=== PATIENT | female | born 1930 | race Caucasian/White ===

== ENCOUNTER 2017-01-18 18:09 | Inpatient (IN) | payer MEDICARE, MEDICAID ==
[2017-01-18] MEDS ORDERED: Sodium Chloride 0.9% 1,000 ML IV ONE ×2 (19:10→21:02)
--- NOTE | 2017-01-18 19:10 | C.PDOC ---
History Of Present Illness Patient is an 86 y/o female with dementia, BIB her family, who presents to the ED with complaints of abdominal pain, constipation, and intermittent bloating for the past week. Family denies fever or chills and describes patient's discomfort as 5/10. The family denies any other complaints at this time. Time Seen by Provider: 01/18/17 19:10 Chief Complaint (Nursing): Altered Mental Status History Per: Family History/Exam Limitations: Other (Patient has dementia. ) Onset/Duration Of Symptoms: Days (symptoms began 1 week ago. ), Worse Since Current Symptoms Are (Timing): Still Present Usual Baseline: Non-verbal, Other (confused) Exacerbating Factor(s): denies: Fever Use Of Anticoag/Antiplatelets: No Severity: Moderate Pain Scale Rating Of: 5 Recent travel outside of the [place]: No Additional History Per: Family Associated Symptoms: Fever, Other (constipation). denies: Chills Past Medical History Reviewed: Historical Data, Nursing Documentation, Vital Signs Vital Signs: Last Vital Signs Temp 97.5 F L 01/18/17 22:17 Pulse 69 01/18/17 22:04 Resp 14 01/18/17 22:04 BP 100/40 L 01/18/17 22:04 Pulse Ox 98 01/18/17 22:04 - Medical History PMH: Alzheimer's Disease, Anemia, Depression, HTN, Hypercholesterolemia, Osteoporosis Denies: Chronic Kidney Disease Surgical History: Cholecystectomy Family History: States: No Known Family Hx - Social History Hx Alcohol Use: No Hx Substance Use: No Review Of Systems Review Of Systems: ROS cannot be obtained secondary to pt's inabilty to answer questions. Physical Exam - Physical Exam Appears: In Acute Distress Skin: Warm, Dry Head: Normacephalic Eye(s): bilateral: Other (decreased vision) Oral Mucosa: Dry Teeth: Edentulous Neck: Trachea Midline, Supple Chest: Symmetrical Cardiovascular: Rhythm Regular, No Murmur Respiratory: No Rales, Rhonchi (scattered bilaterally at bases.), No Wheezing Gastrointestinal/Abdominal: Soft, Tenderness (diffusely. ), Distention, No Guarding, No Rebound Back: No CVA Tenderness Extremity: No Pedal Edema Extremity: Bilateral: Atraumatic Pulses: Left Dorsalis Pedis: Normal, Right Dorsalis Pedis: Normal Neurological/Psych: Slow To Respond With Command, Other ([id number]) Gait: Unable To Assess ED Course And Treatment - Laboratory Results Result Diagrams: 01/18/17 19:33 01/18/17 19:54 ECG: Interpreted By Me, Viewed By Me ECG Rhythm: Sinus Rhythm (77), Nonspecific Changes O2 Sat by Pulse Oximetry: 99 (room air. ) Pulse Ox Interpretation: Normal - Radiology CXR: Interpreted by Me, Viewed By Me CXR Interpretation: No: Infiltrates, Fracture, Pnemothorax Progress Note: Blood work, EKG, CXR, UA/Culture ordered; IV fluids administered. 8:15PM spoke with dr wilcox,icu, who will come and see the pt in the ED. spoke with the family about the critical lab results and their interpretation Critical Care Time - Critical Care Note Total Time (in mins): 30 Documented critical care: time excludes all time spent performing seperately billable procedures. Disposition Discussed With DrSameer: Dayton Reyes Comment: accepted the pt onhis service and took over the care at 8:20PM Doctor Will See Patient In The: Hospital Counseled Patient/Family Regarding: Studies Performed, Diagnosis - Disposition Disposition: HOSPITALIZED Disposition Time: 19:10 Condition: CRITICAL - POA Present On Arrival: Poor Glycemic Control - Clinical Impression Clinical Impression: Constipation, Abdominal pain, Hypernatremia, Severe dehydration, Hyperglycemia - Scribe Statement The provider has reviewed the documentation as recorded by the Scribe Melida Murdock All medical record entries made by the Scribe were at my direction and personally dictated by me. I have reviewed the chart and agree that the record accurately reflects my personal performance of the history, physical exam, medical decision making, and the department course for this patient. I have also personally directed, reviewed, and agree with the discharge instructions and disposition. Decision To Admit - Pt Status Changed To: Hospital Disposition Of: Inpatient - Admit Certification Admit to Inpatient:: After my assessment, the patient will require hospitalization for at least two midnights. This is because of the severity of symptoms shown, intensity of services needed, and/or the medical risk in this patient being treated as an outpatient. - InPatient: Physician Admission Certification:: After my assessment, the patient will require hospitalization for at least two midnights. This is because of the severity of symptoms shown, intensity of services needed, and/or the medical risk in this patient being treated as an outpatient. - . Bed Request Type: ICU Admitting Physician: Dayton Reyes Patient Diagnosis: Constipation, Abdominal pain, Hypernatremia, Severe dehydration, Hyperglycemia
[2017-01-18 19:35] LABS: VENOUS BLOOD GAS BASE EXCESS -2.9 mmol/L (0.0-2.0); VENOUS BLOOD GAS PCO2 38 mmHg (40-60); VENOUS BLOOD PH 7.37 (7.32-7.43)
[2017-01-18 19:38] LABS: BASO % 0.1 % (0.0-2.0); EOS % 0.1 % (0.0-4.0); HEMATOCRIT 41.5 % (34.0-47.0); LYMPH # 2.1 K/uL (1.0-4.3); LYMPH % 26.5 % (20.0-40.0); MEAN CELL VOLUME 97.7 fL (81.0-99.0); MEAN CORPUSCULAR HEMOGLOBIN 30.5 pg (27.0-31.0); MEAN CORPUSCULAR HGB CONC 31.3 g/dL (33.0-37.0); MEAN PLATELET VOLUME 10.8 fL (7.2-11.7); MONO # 0.4 K/uL (0.0-0.8); NRBC % 0.3 % (0.0-2.0); RED CELL DISTRIBUTION WIDTH 16.4 % (11.5-14.5)
[2017-01-18 19:40] LABS: URINE BILIRUBIN NEGATIVE (NEGATIVE); URINE BLOOD NEGATIVE (NEGATIVE); URINE COLOR Yellow (YELLOW); URINE GLUCOSE (UA) 3+ mg/dL (Normal); URINE KETONE NEGATIVE (NEGATIVE); URINE LEUKOCYTE ESTERASE NEG Leu/uL (Negative); URINE PROTEIN NEGATIVE (NEGATIVE); URINE UROBILINOGEN NORMAL mg/dL (0.2-1.0); WBC URINE 1 /hpf (0-5)
[2017-01-18 19:47] LABS: INR 1.1
[2017-01-18] MEDS ORDERED: Sodium Chloride 0.9% 1,000 ML ONE (19:47)
[2017-01-18] MEDS ORDERED: Piperacillin/Tazobact 3.375 gm 100 ML IVPB STA (19:58)
[2017-01-18] MEDS ORDERED: Vancomycin 1 GM 1 GM/250 ML BAG IVPB STA (20:02)
[2017-01-18 20:09] LABS: ALB/GLOB RATIO 0.8 (1.0-2.1); ALKALINE PHOSPHATASE 67 U/L (38-126); ALT/SGPT 26 U/L (9-52); AST/SGOT 42 U/L (14-36); BILIRUBIN,TOTAL 0.4 mg/dL (0.2-1.3); CARBON DIOXIDE 22 mmol/L (22-30); CHLORIDE 136 mmol/L (98-107); GFR AFRICAN-AMERICAN 37; TOTAL PROTEIN 7.4 g/dL (6.3-8.3)
[2017-01-18 20:11] LABS: BLOOD UREA NITROGEN 106 mg/dL (7-17); GLUCOSE,RANDOM 410 mg/dL (65-105)
[2017-01-18 20:13] LABS: SODIUM 177 mmol/L (132-148)
[2017-01-18] MEDS ORDERED: Vancomycin 1 GM 1 GM/250 ML BAG IVPB ONE (20:15)
[2017-01-18] MEDS ORDERED: Piperacillin/Tazobact 3.375 gm 100 ML IVPB ONE (20:15)
[2017-01-18] MEDS ORDERED: (Novolin R) Insulin Human Regular 100 units/ml vial IV STA (20:16)
[2017-01-18] MEDS ORDERED: (Novolin R) Insulin Human Regular 100 units/ml vial ONE (20:23)
--- NOTE | 2017-01-18 23:11 | CP.PCM.CON ---
History of Present Illness - History of Present Illness History of Present Illness: 86 y/o female with dementia,DM,Anemia, Depression, HTN, Hypercholesterolemia, Osteoporosis BIB her family ED with complaints of abdominal pain, constipation and worsening mental status. Family denies fever or chills .In ER patient was hypotensive,received 2L IV fluids with improvement in BP patient last walked about 9 days ago. Appetite poor for 1 wk but has been eating soup.family also noted that she was more drowsy.They had spoken to the PMD who had advised to stop the sleeping medication.The family denies any other complaints at this time. History from daughter Review of Systems - Review of Systems Review of Systems: unable to get from patient Past Patient History - Infectious Disease Hx of Infectious Diseases: None - Past Medical History & Family History Past Medical History?: Yes - Past Social History Smoking Status: Heavy Smoker > 10 Cigarettes Daily Alcohol: None - CARDIAC Hx Hypercholesterolemia: Yes Hx Hypertension: Yes - PULMONARY Hx Respiratory Disorders: No - NEUROLOGICAL Hx Dementia: Yes - HEENT Hx HEENT Problems: Yes Hx Cataracts: Yes - RENAL Hx Chronic Kidney Disease: No - ENDOCRINE/METABOLIC Hx Endocrine Disorders: Yes Hx Diabetes Mellitus Type 1: Yes - HEMATOLOGICAL/ONCOLOGICAL Hx Anemia: Yes - INTEGUMENTARY Hx Dermatological Problems: No - MUSCULOSKELETAL/RHEUMATOLOGICAL Hx Osteoporosis: Yes - GASTROINTESTINAL Hx Gastrointestinal Disorders: No - GENITOURINARY/GYNECOLOGICAL Hx Genitourinary Disorders: No - PSYCHIATRIC Hx Depression: Yes Hx Substance Use: No - SURGICAL HISTORY Hx Cataract Extraction: Yes Hx Cholecystectomy: Yes Hx Hysterectomy: Yes - ANESTHESIA Hx Anesthesia: Yes Hx Anesthesia Reactions: No Hx Malignant Hyperthermia: No Has any member of the family had a problem w/ anesthesia?: No Meds Allergies/Adverse Reactions: Allergies Allergy/AdvReac Type Severity Reaction Status Date / Time No Known Allergies Allergy Verified 01/18/17 18:27 Physical Exam - Constitutional Appears: Confused, Chronically Ill - Head Exam Head Exam: ATRAUMATIC, NORMAL INSPECTION, NORMOCEPHALIC - Eye Exam Pupil Exam: PERRL - ENT Exam ENT Exam: Mucous Membranes Dry - Neck Exam Neck exam: Positive for: Normal Inspection. Negative for: Lymphadenopathy - Respiratory Exam Respiratory Exam: Clear to Auscultation Bilateral, NORMAL BREATHING PATTERN. absent: Respiratory Distress - Cardiovascular Exam Cardiovascular Exam: REGULAR RHYTHM - GI/Abdominal Exam GI & Abdominal Exam: Normal Bowel Sounds, Soft. absent: Distended - Extremities Exam Extremities exam: Positive for: normal inspection, pedal pulses present. Negative for: pedal edema - Neurological Exam Neurological exam: Altered - Skin Skin Exam: Dry, Intact Results - Vital Signs Recent Vital Signs: Last Vital Signs Temp 97.5 F L 01/18/17 22:17 Pulse 69 01/18/17 22:04 Resp 14 01/18/17 22:04 BP 100/40 L 01/18/17 22:04 Pulse Ox 99 01/18/17 22:45 - Labs Result Diagrams: 01/18/17 19:33 01/18/17 19:54 Labs: Laboratory Results - last 24 hr 01/18/17 21:05 POC Glucose (mg/dL) 272 H - EKG Data EKG Interpreted by: Myself EKG shows normal: Sinus rhythm - Imaging and Cardiology Chest x-ray Status: Image reviewed by me (no infiltrates) CT scan - abdomen Status: Report reviewed by me Assessment & Plan - Assessment and Plan (Free Text) Assessment: 86 y/o female with DM ,dementia admitted with altered mental status 1.Altered mental status/Electrolyte imbalance-probably related to dehydration.Initially hypotensive in Er IVF received IV antibiotics in ER follow up cultures 2.Hypernatremia/Renal insuffiency /dehydration IVF.f/u lytes 3.DM -IVF and insulin 4.Thrombocytopenia- AST mildly elevated f/u with CBC in am 5.Constipatipon-Ct abdomen with marked constipation
[2017-01-18] MEDS ORDERED: Sodium Chloride 0.9% 1,000 ML IV SCH (23:30)
[2017-01-19 00:12] LABS: CALCIUM 7.4 mg/dl (8.6-10.4); MAGNESIUM 3.4 mg/dL (1.6-2.3); PHOSPHOROUS 3.6 mg/dL (2.5-4.5); POTASSIUM 4.4 mmol/L (3.6-5.2)
--- NOTE | 2017-01-19 00:54 | CP.PCM.HP ---
<Cody Castellanos - Last Filed: 01/19/17 01:30> History of Present Illness - History of Present Illness History of Present Illness: PGY1 Medicine Note for Dr. Reyes 86 year old female with PMH of dementia, IDDM, Anemia, HTN, Hypercholesterolemia , Osteoporosis and Depression was brought into the ED by her family with complaints of abdominal pain, constipation and declining mental status. Entire history was given by Family (daughter primarily) due to patient not responding/ altered. Family denies fever or chills. They state patient last walked approx. 7 days ago. They report the patient's appetite has been poor for 1 week but has she has been eating soup. The family also noted that she was more drowsy over the past three days. They had spoken to the PMD who had advised to stop the sleeping medication. They report the patient has not had a normal BM in one week. She had a small BM this morning that produced multiple small hardballs of stools. The family denies any other complaints at this time. PMH: dementia, IDDM, Anemia, HTN, Hypercholesterolemia, Osteoporosis and Depression PSH: Social: Current smoker, Denies alcohol Allergies: NKDA Present on Admission - Present on Admission Any Indicators Present on Admission: No Review of Systems - Review of Systems Systems not reviewed;Unavailable: Dementia, Altered Mental Status Past Patient History - Infectious Disease Hx of Infectious Diseases: None - Past Medical History & Family History Past Medical History?: Yes - Past Social History Smoking Status: Heavy Smoker > 10 Cigarettes Daily Alcohol: None - CARDIAC Hx Hypercholesterolemia: Yes Hx Hypertension: Yes - PULMONARY Hx Respiratory Disorders: No - NEUROLOGICAL Hx Dementia: Yes - HEENT Hx HEENT Problems: Yes Hx Cataracts: Yes - RENAL Hx Chronic Kidney Disease: No - ENDOCRINE/METABOLIC Hx Endocrine Disorders: Yes Hx Diabetes Mellitus Type 1: Yes - HEMATOLOGICAL/ONCOLOGICAL Hx Anemia: Yes - INTEGUMENTARY Hx Dermatological Problems: No - MUSCULOSKELETAL/RHEUMATOLOGICAL Hx Osteoporosis: Yes - GASTROINTESTINAL Hx Gastrointestinal Disorders: No - GENITOURINARY/GYNECOLOGICAL Hx Genitourinary Disorders: No - PSYCHIATRIC Hx Depression: Yes Hx Substance Use: No - SURGICAL HISTORY Hx Cataract Extraction: Yes Hx Cholecystectomy: Yes Hx Hysterectomy: Yes - ANESTHESIA Hx Anesthesia: Yes Hx Anesthesia Reactions: No Hx Malignant Hyperthermia: No Has any member of the family had a problem w/ anesthesia?: No Meds Allergies/Adverse Reactions: Allergies Allergy/AdvReac Type Severity Reaction Status Date / Time No Known Allergies Allergy Verified 01/18/17 18:27 Physical Exam - Constitutional Appears: Confused, Chronically Ill - Head Exam Head Exam: ATRAUMATIC, NORMAL INSPECTION, NORMOCEPHALIC - Eye Exam Eye Exam: EOMI Pupil Exam: NORMAL ACCOMODATION, PERRL - ENT Exam ENT Exam: Mucous Membranes Dry - Neck Exam Neck exam: Positive for: Normal Inspection. Negative for: Lymphadenopathy, Tenderness - Respiratory Exam Respiratory Exam: Clear to Auscultation Bilateral, NORMAL BREATHING PATTERN. absent: Accessory Muscle Use - Cardiovascular Exam Cardiovascular Exam: REGULAR RHYTHM, +S1, +S2 - GI/Abdominal Exam GI & Abdominal Exam: Normal Bowel Sounds, Soft. absent: Distended - Extremities Exam Extremities exam: Positive for: normal inspection, pedal pulses present. Negative for: pedal edema - Neurological Exam Neurological exam: Alert - Skin Skin Exam: Dry, Intact, Warm Results - Vital Signs Recent Vital Signs: Last Vital Signs Temp 97.4 F L 01/19/17 00:00 Pulse 60 01/19/17 00:00 Resp 13 01/19/17 00:00 BP 114/51 L 01/18/17 23:57 Pulse Ox 97 01/19/17 00:00 - Labs Result Diagrams: 01/18/17 19:33 01/18/17 23:49 Labs: Laboratory Results - last 24 hr 01/18/17 01/18/17 01/19/17 21:05 23:49 00:14 Sodium 178 H* Potassium 4.4 Chloride 143 H Carbon Dioxide 22 Anion Gap 17 BUN 85 H Creatinine 1.3 H Est GFR ( Amer) 47 Est GFR (Non-Af Amer) 39 POC Glucose (mg/dL) 272 H 129 H Random Glucose 110 H Lactic Acid Calcium 7.4 L Phosphorus 3.6 Magnesium 3.4 H 01/19/17 00:37 Sodium Potassium Chloride Carbon Dioxide Anion Gap BUN Creatinine Est GFR ( Amer) Est GFR (Non-Af Amer) POC Glucose (mg/dL) Random Glucose Lactic Acid 1.0 Calcium Phosphorus Magnesium Assessment & Plan - Assessment and Plan (Free Text) Assessment: Altered mental status/Electrolyte imbalance - possibly 2/2 dehydration. Hypotensive in ED - BP responded to IV fluids - received 2L in ED, started on NS @100mL per hour received IV antibiotics in ER - started on Vanco/Zosyn UA negative for UTI follow up blood, MRSA and urine cultures f/u ECHO Hypernatremia/Renal insuffiency /dehydration Na 178; Cl 143 IVF Follow up CMP, mag, phos, TSH, vit B12 Diabetes Glucose 414 on arrival Started on Levemir 10 units; Sliding Scale; Accuchecks Q6H NPO f/u HgbA1c Thrombocytopenia Platelets - 90 on arrival AST 42 - mildly elevated f/u with CBC in am Abdominal Pain CT Abdomen/Pelvis w/o - Constipation Lipase 202 Prophylactic Care SCDs <Dayton Reyes P - Last Filed: 01/19/17 07:06> Results - Vital Signs Recent Vital Signs: Last Vital Signs Temp 97.6 F 01/19/17 04:00 Pulse 62 01/19/17 06:00 Resp 13 01/19/17 06:00 BP 99/47 L 01/19/17 05:56 Pulse Ox 100 01/19/17 06:00 - Labs Result Diagrams: 01/19/17 06:25 01/19/17 06:25 Labs: Laboratory Results - last 24 hr 01/18/17 01/18/17 01/19/17 21:05 23:49 00:14 WBC RBC Hgb Hct MCV MCH MCHC RDW Plt Count MPV Neut % (Auto) Lymph % (Auto) [place] % (Auto) Eos % (Auto) Baso % (Auto) Neut # Lymph # [place] # Eos # Baso # Sodium 178 H* Potassium 4.4 Chloride 143 H Carbon Dioxide 22 Anion Gap 17 BUN 85 H Creatinine 1.3 H Est GFR ( Amer) 47 Est GFR (Non-Af Amer) 39 POC Glucose (mg/dL) 272 H 129 H Random Glucose 110 H Lactic Acid Calcium 7.4 L Phosphorus 3.6 Magnesium 3.4 H Total Bilirubin AST ALT Alkaline Phosphatase Total Protein Albumin Globulin Albumin/Globulin Ratio 01/19/17 01/19/17 01/19/17 00:37 05:28 06:11 WBC RBC Hgb Hct MCV MCH MCHC RDW Plt Count MPV Neut % (Auto) Lymph % (Auto) [place] % (Auto) Eos % (Auto) Baso % (Auto) Neut # Lymph # [place] # Eos # Baso # Sodium Potassium Chloride Carbon Dioxide Anion Gap BUN Creatinine Est GFR ( Amer) Est GFR (Non-Af Amer) POC Glucose (mg/dL) 62 L 71 Random Glucose Lactic Acid 1.0 Calcium Phosphorus Magnesium Total Bilirubin AST ALT Alkaline Phosphatase Total Protein Albumin Globulin Albumin/Globulin Ratio 01/19/17 01/19/17 06:25 06:25 WBC 6.0 RBC 3.59 L Hgb 10.9 L D Hct 35.4 MCV 98.7 MCH 30.4 MCHC 30.8 L RDW 15.9 H Plt Count 74 L MPV 10.4 Neut % (Auto) 65.4 Lymph % (Auto) 27.7 [place] % (Auto) 6.2 Eos % (Auto) 0.4 Baso % (Auto) 0.3 Neut # 3.9 Lymph # 1.7 [place] # 0.4 Eos # 0.0 Baso # 0.0 Sodium 180 H* Potassium 4.1 Chloride 144 H Carbon Dioxide 21 L Anion Gap 19 BUN 77 H Creatinine 1.1 Est GFR ( Amer) 57 Est GFR (Non-Af Amer) 47 POC Glucose (mg/dL) Random Glucose 56 L Lactic Acid Calcium 7.6 L Phosphorus 3.7 Magnesium 3.5 H Total Bilirubin 0.2 AST 53 H D ALT 35 Alkaline Phosphatase 55 Total Protein 6.3 Albumin 2.8 L Globulin 3.5 Albumin/Globulin Ratio 0.8 L Attending/Attestation - Attestation I have personally seen and examined this patient.: Yes I have fully participated in the care of the patient.: Yes I have reviewed all pertinent clinical information: Yes Notes (Text): Severe dehydration hypernatremia apart is from poor intake for last 1 wk, but also a part is from [facility] which is acting as proximal renal tubule diuretic causing water loss, patient has been constipated for1 wk, poor mobility for same duration, at baseline pt was continent to bowel/bladder and walked without support. Patient has h/o dm, dementia, htn, had urinary retention of 600ml, and low garde fever, pt was hypotensive n ER intially needing 2 boluses. Plan Gentle ivf ns, to start with then adjust with sodium, as bp stabilized, rocephin for atelectesis, urinary retention procalcitonin sliding scale hold farxiga GI/DVT prophylaxis See orders for detail.
[2017-01-19 06:38] LABS: BASO % 0.3 % (0.0-2.0); EOS % 0.4 % (0.0-4.0); HEMATOCRIT 35.4 % (34.0-47.0); LYMPH # 1.7 K/uL (1.0-4.3); LYMPH % 27.7 % (20.0-40.0); MEAN CELL VOLUME 98.7 fL (81.0-99.0); MEAN CORPUSCULAR HEMOGLOBIN 30.4 pg (27.0-31.0); MEAN CORPUSCULAR HGB CONC 30.8 g/dL (33.0-37.0); MEAN PLATELET VOLUME 10.4 fL (7.2-11.7); MONO # 0.4 K/uL (0.0-0.8); MONO % 6.2 % (0.0-10.0); NRBC % 0.4 % (0.0-2.0); RED CELL DISTRIBUTION WIDTH 15.9 % (11.5-14.5)
[2017-01-19 06:50] LABS: ALB/GLOB RATIO 0.8 (1.0-2.1); BILIRUBIN,TOTAL 0.2 mg/dL (0.2-1.3); CALCIUM 7.6 mg/dl (8.6-10.4); MAGNESIUM 3.5 mg/dL (1.6-2.3); PHOSPHOROUS 3.7 mg/dL (2.5-4.5); POTASSIUM 4.1 mmol/L (3.6-5.2); TOTAL PROTEIN 6.3 g/dL (6.3-8.3)
[2017-01-19 07:14] LABS: THYROID STIMULATING HORMONE 0.64 mIU/L (0.46-4.68)
[2017-01-19] MEDS: (Novolin R) Insulin Human Regular 100 units/ml vial SC SCH ×4 (07:30→17:44)
[2017-01-19] MEDS: Potassium Ch 20mEq in D5-1/2NS 1,000 ML IV SCH ×3 (08:45→19:54)
--- NOTE | 2017-01-19 09:30 | CT ---
PROCEDURE: CT Abdomen and Pelvis without intravenous contrast HISTORY: abd pain, distension COMPARISON: None. TECHNIQUE: Helical CT the abdomen and pelvis was performed without oral or intravenous contrast as per referring physician request.. Contrast Dose: None Radiation dose: Total exam DLP = 548 mGy-cm. This CT exam was performed using one or more of the following dose reduction techniques: Automated exposure control, adjustment of the mA and/or kV according to patient size, and/or use of iterative reconstruction technique. FINDINGS: LOWER THORAX: A small hiatal hernia is identified with limited bilateral basilar dependent atelectasis mild cardiomegaly appreciated. LIVER: Unremarkable. No gross lesion or ductal dilatation. GALLBLADDER AND BILE DUCTS: Prior cholecystectomy evident. PANCREAS: Unremarkable. No gross lesion or ductal dilatation. SPLEEN: Unremarkable. ADRENALS: Unremarkable. No mass. KIDNEYS AND URETERS: Unremarkable. No hydronephrosis. No solid mass. VASCULATURE: Unremarkable. No aortic aneurysm. BOWEL: No obstruction. No gross mural thickening. There is are relatively prominent appearing amount of retained fecal material throughout the large bowel which may indicate an element of constipation. Correlate further. APPENDIX: Retrocecal. Normal appendix. PERITONEUM: Unremarkable. No free fluid. No free air. LYMPH NODES: Unremarkable. No enlarged lymph nodes. BLADDER: Decompressed by Peguero catheter apparently. REPRODUCTIVE: Unremarkable. BONES: Advanced multilevel thoracolumbar spondylosis. OTHER FINDINGS: None. IMPRESSION: Consider potential constipation given the amount of retained fecal material scattered throughout the large bowel. No definite acute abdominal or pelvic findings. Prior cholecystectomy is noted.
[2017-01-19] MEDS ORDERED: Insulin Detemir 100 units/ml Vial (Levemir) SC SCH (10:00)
--- NOTE | 2017-01-19 10:13 | RAD ---
PROCEDURE: CHEST RADIOGRAPH, 1 VIEW HISTORY: Altered mental status COMPARISON: 01/18/2017 FINDINGS: LUNGS: Mild venous congestion. Right apical pleural thickening. PLEURA: No pneumothorax or pleural fluid seen. CARDIOVASCULAR: Calcification at the aortic knob. OSSEOUS STRUCTURES: Degenerative changes in the spine with paravertebral osteophytes. VISUALIZED UPPER ABDOMEN: Surgical clips in the right upper abdomen. OTHER FINDINGS: None. IMPRESSION: Mild venous congestion. Right apical pleural thickening.
--- NOTE | 2017-01-19 12:34 | CP.CCUPN ---
CCU Subjective - Physician Review Subjective (Free Text): Patient was seen and examined this AM with daughter by side. Patient with hx of alzheimer's/dementia and still currently confused thus ROS obtained by daughter. Patient with diffuse abdominal pain, poor appetite. Denies fever, chills, nausea, vomiting, diarrhea. Small, hard bowel movement last night. 01/19/17 12:27 CCU Objective - Vital Signs / Intake & Output Vital Signs (Last 4 hours): Vital Signs Pulse Resp BP Pulse Ox 01/19/17 09:00 64 11 L 94 L 01/19/17 08:57 64 12 99/42 L 95 Intake and Output (Last 8hrs): Intake & Output 01/18/17 01/19/17 01/19/17 22:59 06:59 14:59 Intake Total 1000 800 330 Output Total 675 275 120 Balance 325 525 210 Weight 140 lb Intake: IV 1000 Intake, IV Amount 800 330 Right Distal Port Hand 30 Right Hand 800 300 Oral 0 Output: Urine 675 275 120 Urethral (Peguero) 275 120 Other: # Bowel Movements 1 0 - Physical Exam Physical Exam Limitations: Positive for: Altered Mental Status Head: Positive for: Atraumatic Pupils: Positive for: PERRL Extroacular Muscles: Positive for: EOMI Mouth: Positive for: Moist Mucous Membranes Respiratory/Chest: Positive for: Clear to Auscultation. Negative for: Wheezes, Rales, Rhonchi Cardiovascular: Positive for: Regular Rate and Rhythm, Normal S1, S2 Abdomen: Positive for: Tenderness, Normal Bowel Sounds Neurological: Positive for: Other (altered) Skin: Positive for: Warm, Dry, Normal Color Psychiatric: Negative for: Alert - Medications Active Medications: Active Medications Generic Name Dose Route Start Last Admin Trade Name Nicolásq PRN Reason Stop Dose Admin Famotidine 20 mg 01/19/17 10:00 01/19/17 10:28 Pepcid IVP 20 mg DAILY GABRIELA Administration Potassium Chloride/Dextrose/Sod Cl 1,000 mls @ 100 mls/hr 01/19/17 07:30 03/27 08:45 Potassium Chl 20 Meq In D5-1/2ns IV 100 mls/hr .Q10H GABRIELA Administration Ceftriaxone Sodium 1 gm/ 100 mls @ 100 mls/hr 01/19/17 10:00 01/19/17 10:28 Sodium Chloride IVPB 100 mls/hr DAILY GABRIELA Administration Dextrose 1,000 mls @ 75 mls/hr 01/19/17 10:30 01/19/17 10:32 Dextrose 5% In Water 1000 Ml IV 75 mls/hr .[id number] GABRIELA Administration Insulin Human Regular 0 unit 01/19/17 07:30 01/19/17 07:30 Novolin R SC Not Given ACHS GABRIELA Protocol - Patient Studies Lab Studies: Lab Studies 01/19/17 01/19/17 01/19/17 Range/Units 10:52 07:33 06:25 WBC 6.0 (4.8-10.8) K/uL RBC 3.59 L (3.80-5.20) Mil/uL Hgb 10.9 L D (11.0-16.0) g/dL Hct 35.4 (34.0-47.0) % MCV 98.7 (81.0-99.0) fL MCH 30.4 (27.0-31.0) pg MCHC 30.8 L (33.0-37.0) g/dL RDW 15.9 H (11.5-14.5) % Plt Count 74 L (130-400) K/uL MPV 10.4 (7.2-11.7) fL Neut % (Auto) 65.4 (50.0-75.0) % Lymph % (Auto) 27.7 (20.0-40.0) % [place] % (Auto) 6.2 (0.0-10.0) % Eos % (Auto) 0.4 (0.0-4.0) % Baso % (Auto) 0.3 (0.0-2.0) % Neut # 3.9 (1.8-7.0) K/uL Lymph # 1.7 (1.0-4.3) K/uL [place] # 0.4 (0.0-0.8) K/uL Eos # 0.0 (0.0-0.7) K/uL Baso # 0.0 (0.0-0.2) K/uL Sodium (132-148) mmol/L Potassium (3.6-5.2) mmol/L Chloride (98-107) mmol/L Carbon Dioxide (22-30) mmol/L Anion Gap (10-20) BUN (7-17) mg/dL Creatinine (0.7-1.2) MG/DL Est GFR ( Amer) Est GFR (Non-Af Amer) POC Glucose (mg/dL) 154 H 99 (65-110) mg/dL Random Glucose (65-105) mg/dL Hemoglobin A1c (4.2-6.5) % Lactic Acid (0.7-2.1) mmol/L Calcium (8.6-10.4) mg/dl Phosphorus (2.5-4.5) mg/dL Magnesium (1.6-2.3) mg/dL Total Bilirubin (0.2-1.3) mg/dL AST (14-36) U/L ALT (9-52) U/L Alkaline Phosphatase (38-126) U/L Total Protein (6.3-8.3) g/dL Albumin (3.5-5.0) g/dL Globulin (2.2-3.9) gm/dL Albumin/Globulin Ratio (1.0-2.1) Vitamin B12 (239-931) pg/mL Procalcitonin (0.19-0.49) NG/ML TSH 3rd Generation (0.46-4.68) mIU/L 01/19/17 01/19/17 01/19/17 Range/Units 06:25 06:25 06:25 WBC (4.8-10.8) K/uL RBC (3.80-5.20) Mil/uL Hgb (11.0-16.0) g/dL Hct (34.0-47.0) % MCV (81.0-99.0) fL MCH (27.0-31.0) pg MCHC (33.0-37.0) g/dL RDW (11.5-14.5) % Plt Count (130-400) K/uL MPV (7.2-11.7) fL Neut % (Auto) (50.0-75.0) % Lymph % (Auto) (20.0-40.0) % [place] % (Auto) (0.0-10.0) % Eos % (Auto) (0.0-4.0) % Baso % (Auto) (0.0-2.0) % Neut # (1.8-7.0) K/uL Lymph # (1.0-4.3) K/uL [place] # (0.0-0.8) K/uL Eos # (0.0-0.7) K/uL Baso # (0.0-0.2) K/uL Sodium 180 H* (132-148) mmol/L Potassium 4.1 (3.6-5.2) mmol/L Chloride 144 H (98-107) mmol/L Carbon Dioxide 21 L (22-30) mmol/L Anion Gap 19 (10-20) BUN 77 H (7-17) mg/dL Creatinine 1.1 (0.7-1.2) MG/DL Est GFR ( Amer) 57 Est GFR (Non-Af Amer) 47 POC Glucose (mg/dL) (65-110) mg/dL Random Glucose 56 L (65-105) mg/dL Hemoglobin A1c 12.9 H (4.2-6.5) % Lactic Acid (0.7-2.1) mmol/L Calcium 7.6 L (8.6-10.4) mg/dl Phosphorus 3.7 (2.5-4.5) mg/dL Magnesium 3.5 H (1.6-2.3) mg/dL Total Bilirubin 0.2 (0.2-1.3) mg/dL AST 53 H D (14-36) U/L ALT 35 (9-52) U/L Alkaline Phosphatase 55 (38-126) U/L Total Protein 6.3 (6.3-8.3) g/dL Albumin 2.8 L (3.5-5.0) g/dL Globulin 3.5 (2.2-3.9) gm/dL Albumin/Globulin Ratio 0.8 L (1.0-2.1) Vitamin B12 810 (239-931) pg/mL Procalcitonin 0.20 (0.19-0.49) NG/ML TSH 3rd Generation 0.64 (0.46-4.68) mIU/L 01/19/17 01/19/17 01/19/17 Range/Units 06:11 05:28 00:37 WBC (4.8-10.8) K/uL RBC (3.80-5.20) Mil/uL Hgb (11.0-16.0) g/dL Hct (34.0-47.0) % MCV (81.0-99.0) fL MCH (27.0-31.0) pg MCHC (33.0-37.0) g/dL RDW (11.5-14.5) % Plt Count (130-400) K/uL MPV (7.2-11.7) fL Neut % (Auto) (50.0-75.0) % Lymph % (Auto) (20.0-40.0) % [place] % (Auto) (0.0-10.0) % Eos % (Auto) (0.0-4.0) % Baso % (Auto) (0.0-2.0) % Neut # (1.8-7.0) K/uL Lymph # (1.0-4.3) K/uL [place] # (0.0-0.8) K/uL Eos # (0.0-0.7) K/uL Baso # (0.0-0.2) K/uL Sodium (132-148) mmol/L Potassium (3.6-5.2) mmol/L Chloride (98-107) mmol/L Carbon Dioxide (22-30) mmol/L Anion Gap (10-20) BUN (7-17) mg/dL Creatinine (0.7-1.2) MG/DL Est GFR ( Amer) Est GFR (Non-Af Amer) POC Glucose (mg/dL) 71 62 L (65-110) mg/dL Random Glucose (65-105) mg/dL Hemoglobin A1c (4.2-6.5) % Lactic Acid 1.0 (0.7-2.1) mmol/L Calcium (8.6-10.4) mg/dl Phosphorus (2.5-4.5) mg/dL Magnesium (1.6-2.3) mg/dL Total Bilirubin (0.2-1.3) mg/dL AST (14-36) U/L ALT (9-52) U/L Alkaline Phosphatase (38-126) U/L Total Protein (6.3-8.3) g/dL Albumin (3.5-5.0) g/dL Globulin (2.2-3.9) gm/dL Albumin/Globulin Ratio (1.0-2.1) Vitamin B12 (239-931) pg/mL Procalcitonin (0.19-0.49) NG/ML TSH 3rd Generation (0.46-4.68) mIU/L 01/19/17 01/18/17 01/18/17 Range/Units 00:14 23:49 23:49 WBC (4.8-10.8) K/uL RBC (3.80-5.20) Mil/uL Hgb (11.0-16.0) g/dL Hct (34.0-47.0) % MCV (81.0-99.0) fL MCH (27.0-31.0) pg MCHC (33.0-37.0) g/dL RDW (11.5-14.5) % Plt Count (130-400) K/uL MPV (7.2-11.7) fL Neut % (Auto) (50.0-75.0) % Lymph % (Auto) (20.0-40.0) % [place] % (Auto) (0.0-10.0) % Eos % (Auto) (0.0-4.0) % Baso % (Auto) (0.0-2.0) % Neut # (1.8-7.0) K/uL Lymph # (1.0-4.3) K/uL [place] # (0.0-0.8) K/uL Eos # (0.0-0.7) K/uL Baso # (0.0-0.2) K/uL Sodium 178 H* (132-148) mmol/L Potassium 4.4 (3.6-5.2) mmol/L Chloride 143 H (98-107) mmol/L Carbon Dioxide 22 (22-30) mmol/L Anion Gap 17 (10-20) BUN 85 H (7-17) mg/dL Creatinine 1.3 H (0.7-1.2) MG/DL Est GFR ( Amer) 47 Est GFR (Non-Af Amer) 39 POC Glucose (mg/dL) 129 H (65-110) mg/dL Random Glucose 110 H (65-105) mg/dL Hemoglobin A1c (4.2-6.5) % Lactic Acid (0.7-2.1) mmol/L Calcium 7.4 L (8.6-10.4) mg/dl Phosphorus 3.6 (2.5-4.5) mg/dL Magnesium 3.4 H (1.6-2.3) mg/dL Total Bilirubin (0.2-1.3) mg/dL AST (14-36) U/L ALT (9-52) U/L Alkaline Phosphatase (38-126) U/L Total Protein (6.3-8.3) g/dL Albumin (3.5-5.0) g/dL Globulin (2.2-3.9) gm/dL Albumin/Globulin Ratio (1.0-2.1) Vitamin B12 (239-931) pg/mL Procalcitonin 0.24 (0.19-0.49) NG/ML TSH 3rd Generation (0.46-4.68) mIU/L 01/18/17 Range/Units 21:05 WBC (4.8-10.8) K/uL RBC (3.80-5.20) Mil/uL Hgb (11.0-16.0) g/dL Hct (34.0-47.0) % MCV (81.0-99.0) fL MCH (27.0-31.0) pg MCHC (33.0-37.0) g/dL RDW (11.5-14.5) % Plt Count (130-400) K/uL MPV (7.2-11.7) fL Neut % (Auto) (50.0-75.0) % Lymph % (Auto) (20.0-40.0) % [place] % (Auto) (0.0-10.0) % Eos % (Auto) (0.0-4.0) % Baso % (Auto) (0.0-2.0) % Neut # (1.8-7.0) K/uL Lymph # (1.0-4.3) K/uL [place] # (0.0-0.8) K/uL Eos # (0.0-0.7) K/uL Baso # (0.0-0.2) K/uL Sodium (132-148) mmol/L Potassium (3.6-5.2) mmol/L Chloride (98-107) mmol/L Carbon Dioxide (22-30) mmol/L Anion Gap (10-20) BUN (7-17) mg/dL Creatinine (0.7-1.2) MG/DL Est GFR ( Amer) Est GFR (Non-Af Amer) POC Glucose (mg/dL) 272 H (65-110) mg/dL Random Glucose (65-105) mg/dL Hemoglobin A1c (4.2-6.5) % Lactic Acid (0.7-2.1) mmol/L Calcium (8.6-10.4) mg/dl Phosphorus (2.5-4.5) mg/dL Magnesium (1.6-2.3) mg/dL Total Bilirubin (0.2-1.3) mg/dL AST (14-36) U/L ALT (9-52) U/L Alkaline Phosphatase (38-126) U/L Total Protein (6.3-8.3) g/dL Albumin (3.5-5.0) g/dL Globulin (2.2-3.9) gm/dL Albumin/Globulin Ratio (1.0-2.1) Vitamin B12 (239-931) pg/mL Procalcitonin (0.19-0.49) NG/ML TSH 3rd Generation (0.46-4.68) mIU/L Laboratory Results - last 24 hr 01/18/17 01/18/17 01/18/17 21:05 23:49 23:49 WBC RBC Hgb Hct MCV MCH MCHC RDW Plt Count MPV Neut % (Auto) Lymph % (Auto) [place] % (Auto) Eos % (Auto) Baso % (Auto) Neut # Lymph # [place] # Eos # Baso # Sodium 178 H* Potassium 4.4 Chloride 143 H Carbon Dioxide 22 Anion Gap 17 BUN 85 H Creatinine 1.3 H Est GFR ( Amer) 47 Est GFR (Non-Af Amer) 39 POC Glucose (mg/dL) 272 H Random Glucose 110 H Hemoglobin A1c Lactic Acid Calcium 7.4 L Phosphorus 3.6 Magnesium 3.4 H Total Bilirubin AST ALT Alkaline Phosphatase Total Protein Albumin Globulin Albumin/Globulin Ratio Vitamin B12 Procalcitonin 0.24 TSH 3rd Generation 01/19/17 01/19/17 01/19/17 00:14 00:37 05:28 WBC RBC Hgb Hct MCV MCH MCHC RDW Plt Count MPV Neut % (Auto) Lymph % (Auto) [place] % (Auto) Eos % (Auto) Baso % (Auto) Neut # Lymph # [place] # Eos # Baso # Sodium Potassium Chloride Carbon Dioxide Anion Gap BUN Creatinine Est GFR ( Amer) Est GFR (Non-Af Amer) POC Glucose (mg/dL) 129 H 62 L Random Glucose Hemoglobin A1c Lactic Acid 1.0 Calcium Phosphorus Magnesium Total Bilirubin AST ALT Alkaline Phosphatase Total Protein Albumin Globulin Albumin/Globulin Ratio Vitamin B12 Procalcitonin TSH 3rd Generation 01/19/17 01/19/17 01/19/17 06:11 06:25 06:25 WBC RBC Hgb Hct MCV MCH MCHC RDW Plt Count MPV Neut % (Auto) Lymph % (Auto) [place] % (Auto) Eos % (Auto) Baso % (Auto) Neut # Lymph # [place] # Eos # Baso # Sodium 180 H* Potassium 4.1 Chloride 144 H Carbon Dioxide 21 L Anion Gap 19 BUN 77 H Creatinine 1.1 Est GFR ( Amer) 57 Est GFR (Non-Af Amer) 47 POC Glucose (mg/dL) 71 Random Glucose 56 L Hemoglobin A1c Lactic Acid Calcium 7.6 L Phosphorus 3.7 Magnesium 3.5 H Total Bilirubin 0.2 AST 53 H D ALT 35 Alkaline Phosphatase 55 Total Protein 6.3 Albumin 2.8 L Globulin 3.5 Albumin/Globulin Ratio 0.8 L Vitamin B12 810 Procalcitonin 0.20 TSH 3rd Generation 0.64 01/19/17 01/19/17 01/19/17 06:25 06:25 07:33 WBC 6.0 RBC 3.59 L Hgb 10.9 L D Hct 35.4 MCV 98.7 MCH 30.4 MCHC 30.8 L RDW 15.9 H Plt Count 74 L MPV 10.4 Neut % (Auto) 65.4 Lymph % (Auto) 27.7 [place] % (Auto) 6.2 Eos % (Auto) 0.4 Baso % (Auto) 0.3 Neut # 3.9 Lymph # 1.7 [place] # 0.4 Eos # 0.0 Baso # 0.0 Sodium Potassium Chloride Carbon Dioxide Anion Gap BUN Creatinine Est GFR ( Amer) Est GFR (Non-Af Amer) POC Glucose (mg/dL) 99 Random Glucose Hemoglobin A1c 12.9 H Lactic Acid Calcium Phosphorus Magnesium Total Bilirubin AST ALT Alkaline Phosphatase Total Protein Albumin Globulin Albumin/Globulin Ratio Vitamin B12 Procalcitonin TSH 3rd Generation 01/19/17 10:52 WBC RBC Hgb Hct MCV MCH MCHC RDW Plt Count MPV Neut % (Auto) Lymph % (Auto) [place] % (Auto) Eos % (Auto) Baso % (Auto) Neut # Lymph # [place] # Eos # Baso # Sodium Potassium Chloride Carbon Dioxide Anion Gap BUN Creatinine Est GFR ( Amer) Est GFR (Non-Af Amer) POC Glucose (mg/dL) 154 H Random Glucose Hemoglobin A1c Lactic Acid Calcium Phosphorus Magnesium Total Bilirubin AST ALT Alkaline Phosphatase Total Protein Albumin Globulin Albumin/Globulin Ratio Vitamin B12 Procalcitonin TSH 3rd Generation Fingerstick Blood Sugar Results: 71 Review of Systems - Review of Systems Systems not reviewed;Unavailable: Altered Mental Status Assessment/Plan - Assessment and Plan (Free Text) Assessment: 86 y/o female with PMH of dementia, IDDM, Anemia, HTN, Hypercholesterolemia, Osteoporosis and Depression admitted with altered mental status Neuro: AMS/Electrolyte imbalance - possibly 2/2 to dehydration - continue KCl in D5-1/2NS @ 100 cc/hr - continue dextrose 5% @ 75 cc/hr Renal: Hypernatremia/renal insuffiency - possibly 2/2 to dehydration - continue KCl in D5-1/2NS @ 100 cc/hr - continue dextrose 5% @ 75 cc/hr - hold farxiga GI: constipation - CT abdomen showing constipation with fecal retention in large bowel Endo: hx of DM2 - RISS medium dose protocol q6 - HgbA1C 12.9 ID: afebrile; normal wbc; procalcitonin wnl - rocephin 1g iv daily for urinary retention, atelectesis - UA negative; urine culture with no growth Heme: thrombocytopenia - monitor platelet count, H/H Prophylaxis: - GI: famotidine 20mg iv daily - DVT: SCDs; low platelets - contraindication for anticoagulation
--- NOTE | 2017-01-19 12:46 | CARD ---
APPROVED REPORT EKG Measurement Heart [id number] VT [id number] <Conclusion> Sinus rhythm with short VT Otherwise normal ECG
[2017-01-19 14:18] LABS: BASO % 0.3 % (0.0-2.0); EOS % 0.6 % (0.0-4.0); HEMATOCRIT 32.8 % (34.0-47.0); LYMPH # 1.5 K/uL (1.0-4.3); LYMPH % 28.3 % (20.0-40.0); MEAN CORPUSCULAR HEMOGLOBIN 30.9 pg (27.0-31.0); MEAN CORPUSCULAR HGB CONC 31.8 g/dL (33.0-37.0); MEAN PLATELET VOLUME 9.8 fL (7.2-11.7); MONO # 0.3 K/uL (0.0-0.8); MONO % 5.7 % (0.0-10.0); NRBC % 0.3 % (0.0-2.0); RED CELL DISTRIBUTION WIDTH 16.3 % (11.5-14.5); WHITE BLOOD COUNT 5.4 K/uL (4.8-10.8)
[2017-01-19 14:34] LABS: ALB/GLOB RATIO 0.8 (1.0-2.1); ALKALINE PHOSPHATASE 56 U/L (38-126); ALT/SGPT 32 U/L (9-52); AST/SGOT 58 U/L (14-36); BILIRUBIN,TOTAL 0.2 mg/dL (0.2-1.3); BLOOD UREA NITROGEN 56 mg/dL (7-17); CALCIUM 7.3 mg/dl (8.6-10.4); CARBON DIOXIDE 23 mmol/L (22-30); CHLORIDE 140 mmol/L (98-107); GFR AFRICAN-AMERICAN > 60; GLUCOSE,RANDOM 206 mg/dL (65-105); POTASSIUM 4.3 mmol/L (3.6-5.2)
--- NOTE | 2017-01-19 15:00 | CP.PCM.PN ---
Subjective - Date & Time of Evaluation Date of Evaluation: 01/19/17 Time of Evaluation: 13:00 - Subjective Subjective: Patient was seen and examined in ICU. Patient is obtunded and nonresponsive. Family is present at bedside. Objective - Vital Signs/Intake and Output Vital Signs (last 24 hours): Temp Pulse Resp BP Pulse Ox 98.5 F 61 15 105/58 L 99 01/19/17 12:00 01/19/17 14:00 01/19/17 14:00 01/19/17 13:57 01/19/17 14:00 Intake and Output: 01/19/17 01/19/17 06:59 18:59 Intake Total 1800 1130 Output Total 950 330 Balance 850 800 - Medications Medications: Current Medications Famotidine (Pepcid) 20 mg IVP DAILY [facility] Last Admin: 01/19/17 10:28 Dose: 20 mg Potassium Chloride/Dextrose/Sod Cl (Potassium Chl 20 Meq In D5-1/2ns) 1,000 mls @ 100 mls/hr IV .Q10H [facility] Last Admin: 01/19/17 08:45 Dose: 100 mls/hr Ceftriaxone Sodium 1 gm/ (Sodium Chloride) 100 mls @ 100 mls/hr IVPB DAILY [facility] Last Admin: 01/19/17 10:28 Dose: 100 mls/hr Dextrose (Dextrose 5% In Water 1000 Ml) 1,000 mls @ 75 mls/hr IV .[id number] GABRIELA Last Admin: 01/19/17 10:32 Dose: 75 mls/hr Insulin Human Regular (Novolin R) 0 unit SC Q6 GABRIELA PRN Reason: Protocol Last Admin: 01/19/17 13:17 Dose: 2 unit - Labs Labs: 01/19/17 14:09 01/19/17 06:25 PT 12.6 SECONDS (9.7-12.2) H 01/18/17 19:33 INR 1.1 01/18/17 19:33 APTT 23 SECONDS (21-34) 01/18/17 19:33 - Head Exam Head Exam: ATRAUMATIC, NORMOCEPHALIC - Eye Exam Eye Exam: Normal appearance - Respiratory Exam Respiratory Exam: Decreased Breath Sounds - Cardiovascular Exam Cardiovascular Exam: REGULAR RHYTHM, +S1, +S2 - GI/Abdominal Exam GI & Abdominal Exam: Soft. absent: Tenderness - Extremities Exam Extremities Exam: absent: Pedal Edema Assessment and Plan (1) Constipation Status: Acute (2) Hyperglycemia Status: Acute (3) Hypernatremia Status: Acute (4) Severe dehydration Status: Acute - Assessment and Plan (Free Text) Plan: Continue IV fluids. Monitor CMP periodically Continue management in ICU Discussed the plan of care with the family Discussed the plan of care with the ICU team and agree with the assessment and plan of the ICU team.
[2017-01-19 15:03] LABS: SODIUM 174 mmol/L (132-148)
--- NOTE | 2017-01-19 19:56 | CARD ---
APPROVED REPORT EXAM: Two-dimensional and M-mode echocardiogram with Doppler and color Doppler. Other Information Quality : Technically DifficultRhythm : NSR INDICATION Anemia RISK FACTORS Hypertension Hyperlipidemia Diabetes 2D DIMENSIONS IVSd0.9 (0.7-1.1cm)LVDd3.5 (3.9-5.9cm) PWd0.9 (0.7-1.1cm)LVDs2.3 (2.5-4.0cm) FS (%) 34.0 %LVEF (%)63.9 (>50%) M-Mode DIMENSIONS Left Atrium (MM)2.83 (2.5-4.0cm)Aortic Root3.02 (2.2-3.7cm) Mitral Valve MV E Pzlfmrnf23.8cm/sMV A Efxgkkru627.8cm/sE/A ratio0.8 TDI E/Lateral E'0.0E/Medial E'0.0 Tricuspid Valve TR Peak [id number]/sTR Peak [id number] LEFT VENTRICLE The left ventricle is normal size. There is normal left ventricular wall thickness. Left ventricle systolic function is normal. The Ejection Fraction is >70%. There is normal LV segmental wall motion. Transmitral Doppler flow pattern is Grade I-abnormal relaxation pattern. There is no ventricular septal defect visualized. RIGHT VENTRICLE The right ventricle is normal size. The right ventricular systolic function is normal. ATRIA The left atrium size is normal. The right atrium size is normal. AORTIC VALVE The aortic valve is mildly sclerotic. The aortic valve is tri-cuspid. No aortic regurgitation is present. There is no aortic valvular stenosis. MITRAL VALVE The mitral valve is normal in structure. There is no evidence of mitral valve prolapse. Mitral regurgitation is trace. TRICUSPID VALVE The tricuspid valve is normal in structure. There is trace tricuspid regurgitation. There is no pulmonary hypertension. PULMONIC VALVE The pulmonic valve is not well visualized. There is no pulmonic valvular regurgitation. GREAT VESSELS The aortic root is normal in size. The ascending aorta is normal in size. The IVC is normal in size and collapses >50% with inspiration. PERICARDIAL EFFUSION There is no pericardial effusion. <Conclusion> Left ventricle systolic function is normal. The Ejection Fraction is >70%. Transmitral Doppler flow pattern is Grade I-abnormal relaxation pattern. Mitral regurgitation is trace.
[2017-01-20] MEDS: (Novolin R) Insulin Human Regular 100 units/ml vial SC SCH ×4 (00:11→18:15)
[2017-01-20] MEDS: Potassium Ch 20mEq in D5-1/2NS 1,000 ML IV SCH ×4 (04:52→17:12)
[2017-01-20 06:26] LABS: BASO % 0.2 % (0.0-2.0); EOS % 0.7 % (0.0-4.0); HEMATOCRIT 32.6 % (34.0-47.0); LYMPH % 35.3 % (20.0-40.0); MEAN CELL VOLUME 96.9 fL (81.0-99.0); MEAN CORPUSCULAR HEMOGLOBIN 30.7 pg (27.0-31.0); MEAN CORPUSCULAR HGB CONC 31.7 g/dL (33.0-37.0); MEAN PLATELET VOLUME 10.3 fL (7.2-11.7); MONO # 0.3 K/uL (0.0-0.8); MONO % 4.8 % (0.0-10.0); NRBC % 0.2 % (0.0-2.0); RED CELL DISTRIBUTION WIDTH 15.7 % (11.5-14.5); WHITE BLOOD COUNT 5.5 K/uL (4.8-10.8)
[2017-01-20 06:37] LABS: CHLORIDE 135 mmol/L (98-107); POTASSIUM 4.5 mmol/L (3.6-5.2)
[2017-01-20 06:39] LABS: ALB/GLOB RATIO 0.8 (1.0-2.1); AST/SGOT 48 U/L (14-36); BILIRUBIN,TOTAL 0.3 mg/dL (0.2-1.3); CARBON DIOXIDE 22 mmol/L (22-30); GFR AFRICAN-AMERICAN > 60; TOTAL PROTEIN 5.6 g/dL (6.3-8.3)
[2017-01-20 06:40] LABS: ALKALINE PHOSPHATASE 52 U/L (38-126); ALT/SGPT 32 U/L (9-52); BLOOD UREA NITROGEN 29 mg/dL (7-17); CALCIUM 7.3 mg/dl (8.6-10.4); GLUCOSE,RANDOM 199 mg/dL (65-105); MAGNESIUM 3.2 mg/dL (1.6-2.3)
[2017-01-20 06:49] LABS: SODIUM 164 mmol/L (132-148)
--- NOTE | 2017-01-20 13:52 | CP.CCUPN ---
<Selwyn Richardson - Last Filed: 01/20/17 13:59> CCU Subjective - Physician Review Subjective (Free Text): Patient was seen and examined this AM with family by side. Patient is obtunded and nonresponsive, ROS is not obtainable. 01/20/17 13:52 CCU Objective - Vital Signs / Intake & Output Vital Signs (Last 4 hours): Vital Signs Temp Pulse Resp BP Pulse Ox 01/20/17 13:00 56 L 13 93 L 01/20/17 12:56 58 L 11 L 109/47 L 100 01/20/17 12:00 98.6 F 53 L 13 98 01/20/17 11:58 58 L 13 115/42 L 100 01/20/17 11:00 56 L 15 100 01/20/17 10:57 57 L 12 106/49 L 98 01/20/17 10:00 56 L 14 98 01/20/17 09:57 56 L 9 L 96/50 L 100 Intake and Output (Last 8hrs): Intake & Output 01/19/17 01/20/17 01/20/17 22:59 06:59 14:59 Intake Total 1225 1025 700 Output Total 760 530 510 Balance 465 495 190 Weight 140 lb Intake: Intake, IV Amount 1225 1025 700 Right Distal Port Hand 525 225 100 Right Hand 700 800 600 Oral 0 0 Output: Urine 760 530 510 Urethral (Peguero) 760 530 510 Other: # Bowel Movements 0 0 - Physical Exam Head: Positive for: Atraumatic Pupils: Positive for: PERRL Extroacular Muscles: Positive for: EOMI Mouth: Positive for: Moist Mucous Membranes Respiratory/Chest: Positive for: Clear to Auscultation. Negative for: Wheezes, Rales, Rhonchi Cardiovascular: Positive for: Regular Rate and Rhythm, Normal S1, S2 Abdomen: Positive for: Tenderness, Normal Bowel Sounds Neurological: Positive for: Other (altered) Skin: Positive for: Warm, Dry, Normal Color Psychiatric: Negative for: Alert - Medications Active Medications: Active Medications Generic Name Dose Route Start Last Admin Trade Name Freq PRN Reason Stop Dose Admin Famotidine 20 mg 01/19/17 10:00 01/20/17 09:36 Pepcid IVP 20 mg DAILY GABRIELA Administration Potassium Chloride/Dextrose/Sod Cl 1,000 mls @ 100 mls/hr 01/19/17 07:30 04/26 05:59 Potassium Chl 20 Meq In D5-1/2ns IV 100 mls/hr .Q10H GABRIELA Administration Ceftriaxone Sodium 1 gm/ 100 mls @ 100 mls/hr 01/19/17 10:00 01/20/17 09:36 Sodium Chloride IVPB 100 mls/hr DAILY GABRIELA Administration Insulin Human Regular 0 unit 01/19/17 12:40 01/20/17 12:33 Novolin R SC 3 unit Q6 GABRIELA Administration Protocol - Patient Studies Lab Studies: Microbiology Studies 01/18/17 Unknown MRSA Culture (Admit) - Final Naris MRSA NOT DETECTED Lab Studies 01/20/17 01/20/17 01/20/17 Range/Units 11:41 06:14 06:14 WBC 5.5 (4.8-10.8) K/uL RBC 3.36 L (3.80-5.20) Mil/uL Hgb 10.3 L (11.0-16.0) g/dL Hct 32.6 L (34.0-47.0) % MCV 96.9 (81.0-99.0) fL MCH 30.7 (27.0-31.0) pg MCHC 31.7 L (33.0-37.0) g/dL RDW 15.7 H (11.5-14.5) % Plt Count 60 L (130-400) K/uL MPV 10.3 (7.2-11.7) fL Neut % (Auto) 59.0 (50.0-75.0) % Lymph % (Auto) 35.3 (20.0-40.0) % [place] % (Auto) 4.8 (0.0-10.0) % Eos % (Auto) 0.7 (0.0-4.0) % Baso % (Auto) 0.2 (0.0-2.0) % Neut # 3.3 (1.8-7.0) K/uL Lymph # 2.0 (1.0-4.3) K/uL [place] # 0.3 (0.0-0.8) K/uL Eos # 0.0 (0.0-0.7) K/uL Baso # 0.0 (0.0-0.2) K/uL Sodium 164 H* (132-148) mmol/L Potassium 4.5 (3.6-5.2) mmol/L Chloride 135 H (98-107) mmol/L Carbon Dioxide 22 (22-30) mmol/L Anion Gap 12 (10-20) BUN 29 H (7-17) mg/dL Creatinine 0.8 (0.7-1.2) MG/DL Est GFR ( Amer) > 60 Est GFR (Non-Af Amer) > 60 POC Glucose (mg/dL) 201 H (65-110) mg/dL Random Glucose 199 H (65-105) mg/dL Calcium 7.3 L (8.6-10.4) mg/dl Phosphorus 2.0 L (2.5-4.5) mg/dL Magnesium 3.2 H (1.6-2.3) mg/dL Total Bilirubin 0.3 (0.2-1.3) mg/dL AST 48 H (14-36) U/L ALT 32 (9-52) U/L Alkaline Phosphatase 52 (38-126) U/L Total Protein 5.6 L (6.3-8.3) g/dL Albumin 2.5 L (3.5-5.0) g/dL Globulin 3.1 (2.2-3.9) gm/dL Albumin/Globulin Ratio 0.8 L (1.0-2.1) 01/20/17 01/19/17 01/19/17 Range/Units 05:22 23:58 17:35 WBC (4.8-10.8) K/uL RBC (3.80-5.20) Mil/uL Hgb (11.0-16.0) g/dL Hct (34.0-47.0) % MCV (81.0-99.0) fL MCH (27.0-31.0) pg MCHC (33.0-37.0) g/dL RDW (11.5-14.5) % Plt Count (130-400) K/uL MPV (7.2-11.7) fL Neut % (Auto) (50.0-75.0) % Lymph % (Auto) (20.0-40.0) % [place] % (Auto) (0.0-10.0) % Eos % (Auto) (0.0-4.0) % Baso % (Auto) (0.0-2.0) % Neut # (1.8-7.0) K/uL Lymph # (1.0-4.3) K/uL [place] # (0.0-0.8) K/uL Eos # (0.0-0.7) K/uL Baso # (0.0-0.2) K/uL Sodium (132-148) mmol/L Potassium (3.6-5.2) mmol/L Chloride (98-107) mmol/L Carbon Dioxide (22-30) mmol/L Anion Gap (10-20) BUN (7-17) mg/dL Creatinine (0.7-1.2) MG/DL Est GFR ( Amer) Est GFR (Non-Af Amer) POC Glucose (mg/dL) 229 H 326 H 344 H (65-110) mg/dL Random Glucose (65-105) mg/dL Calcium (8.6-10.4) mg/dl Phosphorus (2.5-4.5) mg/dL Magnesium (1.6-2.3) mg/dL Total Bilirubin (0.2-1.3) mg/dL AST (14-36) U/L ALT (9-52) U/L Alkaline Phosphatase (38-126) U/L Total Protein (6.3-8.3) g/dL Albumin (3.5-5.0) g/dL Globulin (2.2-3.9) gm/dL Albumin/Globulin Ratio (1.0-2.1) 01/19/17 01/19/17 Range/Units 14:09 14:09 WBC 5.4 (4.8-10.8) K/uL RBC 3.39 L (3.80-5.20) Mil/uL Hgb 10.4 L (11.0-16.0) g/dL Hct 32.8 L (34.0-47.0) % MCV 97.0 (81.0-99.0) fL MCH 30.9 (27.0-31.0) pg MCHC 31.8 L (33.0-37.0) g/dL RDW 16.3 H (11.5-14.5) % Plt Count 66 L (130-400) K/uL MPV 9.8 (7.2-11.7) fL Neut % (Auto) 65.1 (50.0-75.0) % Lymph % (Auto) 28.3 (20.0-40.0) % [place] % (Auto) 5.7 (0.0-10.0) % Eos % (Auto) 0.6 (0.0-4.0) % Baso % (Auto) 0.3 (0.0-2.0) % Neut # 3.5 (1.8-7.0) K/uL Lymph # 1.5 (1.0-4.3) K/uL [place] # 0.3 (0.0-0.8) K/uL Eos # 0.0 (0.0-0.7) K/uL Baso # 0.0 (0.0-0.2) K/uL Sodium 174 H* (132-148) mmol/L Potassium 4.3 (3.6-5.2) mmol/L Chloride 140 H (98-107) mmol/L Carbon Dioxide 23 (22-30) mmol/L Anion Gap 15 (10-20) BUN 56 H (7-17) mg/dL Creatinine 0.9 (0.7-1.2) MG/DL Est GFR ( Amer) > 60 Est GFR (Non-Af Amer) 59 POC Glucose (mg/dL) (65-110) mg/dL Random Glucose 206 H (65-105) mg/dL Calcium 7.3 L (8.6-10.4) mg/dl Phosphorus 3.0 (2.5-4.5) mg/dL Magnesium (1.6-2.3) mg/dL Total Bilirubin 0.2 (0.2-1.3) mg/dL AST 58 H (14-36) U/L ALT 32 (9-52) U/L Alkaline Phosphatase 56 (38-126) U/L Total Protein 6.0 L (6.3-8.3) g/dL Albumin 2.6 L (3.5-5.0) g/dL Globulin 3.4 (2.2-3.9) gm/dL Albumin/Globulin Ratio 0.8 L (1.0-2.1) Laboratory Results - last 24 hr 01/19/17 01/19/17 01/19/17 14:09 14:09 17:35 WBC 5.4 RBC 3.39 L Hgb 10.4 L Hct 32.8 L MCV 97.0 MCH 30.9 MCHC 31.8 L RDW 16.3 H Plt Count 66 L MPV 9.8 Neut % (Auto) 65.1 Lymph % (Auto) 28.3 [place] % (Auto) 5.7 Eos % (Auto) 0.6 Baso % (Auto) 0.3 Neut # 3.5 Lymph # 1.5 [place] # 0.3 Eos # 0.0 Baso # 0.0 Sodium 174 H* Potassium 4.3 Chloride 140 H Carbon Dioxide 23 Anion Gap 15 BUN 56 H Creatinine 0.9 Est GFR ( Amer) > 60 Est GFR (Non-Af Amer) 59 POC Glucose (mg/dL) 344 H Random Glucose 206 H Calcium 7.3 L Phosphorus 3.0 Magnesium Total Bilirubin 0.2 AST 58 H ALT 32 Alkaline Phosphatase 56 Total Protein 6.0 L Albumin 2.6 L Globulin 3.4 Albumin/Globulin Ratio 0.8 L 01/19/17 01/20/17 01/20/17 23:58 05:22 06:14 WBC RBC Hgb Hct MCV MCH MCHC RDW Plt Count MPV Neut % (Auto) Lymph % (Auto) [place] % (Auto) Eos % (Auto) Baso % (Auto) Neut # Lymph # [place] # Eos # Baso # Sodium 164 H* Potassium 4.5 Chloride 135 H Carbon Dioxide 22 Anion Gap 12 BUN 29 H Creatinine 0.8 Est GFR ( Amer) > 60 Est GFR (Non-Af Amer) > 60 POC Glucose (mg/dL) 326 H 229 H Random Glucose 199 H Calcium 7.3 L Phosphorus 2.0 L Magnesium 3.2 H Total Bilirubin 0.3 AST 48 H ALT 32 Alkaline Phosphatase 52 Total Protein 5.6 L Albumin 2.5 L Globulin 3.1 Albumin/Globulin Ratio 0.8 L 01/20/17 01/20/17 06:14 11:41 WBC 5.5 RBC 3.36 L Hgb 10.3 L Hct 32.6 L MCV 96.9 MCH 30.7 MCHC 31.7 L RDW 15.7 H Plt Count 60 L MPV 10.3 Neut % (Auto) 59.0 Lymph % (Auto) 35.3 [place] % (Auto) 4.8 Eos % (Auto) 0.7 Baso % (Auto) 0.2 Neut # 3.3 Lymph # 2.0 [place] # 0.3 Eos # 0.0 Baso # 0.0 Sodium Potassium Chloride Carbon Dioxide Anion Gap BUN Creatinine Est GFR ( Amer) Est GFR (Non-Af Amer) POC Glucose (mg/dL) 201 H Random Glucose Calcium Phosphorus Magnesium Total Bilirubin AST ALT Alkaline Phosphatase Total Protein Albumin Globulin Albumin/Globulin Ratio Fingerstick Blood Sugar Results: 201 Review of Systems - Review of Systems Systems not reviewed;Unavailable: Altered Mental Status Assessment/Plan - Assessment and Plan (Free Text) Assessment: 86 y/o female with PMH of dementia, IDDM, Anemia, HTN, Hypercholesterolemia, Osteoporosis and Depression admitted with altered mental status Neuro: AMS/Electrolyte imbalance - possibly 2/2 to dehydration - continue KCl in D5-1/2NS @ 100 cc/hr - continue dextrose 5% @ 75 cc/hr Renal: Hypernatremia/renal insuffiency - possibly 2/2 to dehydration - hypernatremia improving - continue KCl in D5-1/2NS @ 100 cc/hr - hold farxiga GI: constipation - CT abdomen showing constipation with fecal retention in large bowel Endo: hx of DM2 - RISS medium dose protocol q6 - HgbA1C 12.9 ID: afebrile; normal wbc; procalcitonin wnl; lactic acid wnl - rocephin 1g iv daily for urinary retention, atelectesis - UA negative; urine culture with no growth; Blood cultures negative up to date Heme: thrombocytopenia - monitor platelet count, H/H MSK: left heel DTI, right buttock DTI x2 - would care on board Prophylaxis: - GI: famotidine 20mg iv daily - DVT: SCDs; low platelets - contraindication for anticoagulation <Alex Willett - Last Filed: 01/20/17 18:30> CCU Objective - Vital Signs / Intake & Output Vital Signs (Last 4 hours): Vital Signs Temp Pulse Resp BP Pulse Ox 01/20/17 16:00 98.6 F 58 L 13 99 01/20/17 15:56 56 L 14 122/53 L 100 01/20/17 15:00 58 L 16 100 01/20/17 14:56 55 L 15 121/51 L 100 Intake and Output (Last 8hrs): Intake & Output 01/20/17 01/20/17 01/20/17 06:59 14:59 22:59 Intake Total 1025 800 200 Output Total 530 590 160 Balance 495 210 40 Weight 140 lb Intake: Intake, IV Amount 1025 800 200 Right Distal Port Hand 225 100 Right Hand 800 700 200 Oral 0 0 Output: Urine 530 590 160 Urethral (Peguero) 530 590 160 Other: # Bowel Movements 0 0 - Medications Active Medications: Active Medications Generic Name Dose Route Start Last Admin Trade Name Freq PRN Reason Stop Dose Admin Famotidine 20 mg 01/19/17 10:00 01/20/17 09:36 Pepcid IVP 20 mg DAILY GABRIELA Administration Potassium Chloride/Dextrose/Sod Cl 1,000 mls @ 100 mls/hr 01/19/17 07:30 04/26 17:12 Potassium Chl 20 Meq In D5-1/2ns IV 100 mls/hr .Q10H GBARIELA Administration Ceftriaxone Sodium 1 gm/ 100 mls @ 100 mls/hr 01/19/17 10:00 01/20/17 09:36 Sodium Chloride IVPB 100 mls/hr DAILY GABRIELA Administration Insulin Human Regular 0 unit 01/19/17 12:40 01/20/17 18:15 Novolin R SC 4 unit Q6 GABRIELA Administration Protocol - Patient Studies Lab Studies: Microbiology Studies 01/18/17 Unknown MRSA Culture (Admit) - Final Naris MRSA NOT DETECTED Lab Studies 01/20/17 01/20/17 01/20/17 Range/Units 17:44 11:41 06:14 WBC 5.5 (4.8-10.8) K/uL RBC 3.36 L (3.80-5.20) Mil/uL Hgb 10.3 L (11.0-16.0) g/dL Hct 32.6 L (34.0-47.0) % MCV 96.9 (81.0-99.0) fL MCH 30.7 (27.0-31.0) pg MCHC 31.7 L (33.0-37.0) g/dL RDW 15.7 H (11.5-14.5) % Plt Count 60 L (130-400) K/uL MPV 10.3 (7.2-11.7) fL Neut % (Auto) 59.0 (50.0-75.0) % Lymph % (Auto) 35.3 (20.0-40.0) % [place] % (Auto) 4.8 (0.0-10.0) % Eos % (Auto) 0.7 (0.0-4.0) % Baso % (Auto) 0.2 (0.0-2.0) % Neut # 3.3 (1.8-7.0) K/uL Lymph # 2.0 (1.0-4.3) K/uL [place] # 0.3 (0.0-0.8) K/uL Eos # 0.0 (0.0-0.7) K/uL Baso # 0.0 (0.0-0.2) K/uL Sodium (132-148) mmol/L Potassium (3.6-5.2) mmol/L Chloride (98-107) mmol/L Carbon Dioxide (22-30) mmol/L Anion Gap (10-20) BUN (7-17) mg/dL Creatinine (0.7-1.2) MG/DL Est GFR ( Amer) Est GFR (Non-Af Amer) POC Glucose (mg/dL) 270 H 201 H (65-110) mg/dL Random Glucose (65-105) mg/dL Calcium (8.6-10.4) mg/dl Phosphorus (2.5-4.5) mg/dL Magnesium (1.6-2.3) mg/dL Total Bilirubin (0.2-1.3) mg/dL AST (14-36) U/L ALT (9-52) U/L Alkaline Phosphatase (38-126) U/L Total Protein (6.3-8.3) g/dL Albumin (3.5-5.0) g/dL Globulin (2.2-3.9) gm/dL Albumin/Globulin Ratio (1.0-2.1) 01/20/17 01/20/17 01/19/17 Range/Units 06:14 05:22 23:58 WBC (4.8-10.8) K/uL RBC (3.80-5.20) Mil/uL Hgb (11.0-16.0) g/dL Hct (34.0-47.0) % MCV (81.0-99.0) fL MCH (27.0-31.0) pg MCHC (33.0-37.0) g/dL RDW (11.5-14.5) % Plt Count (130-400) K/uL MPV (7.2-11.7) fL Neut % (Auto) (50.0-75.0) % Lymph % (Auto) (20.0-40.0) % [place] % (Auto) (0.0-10.0) % Eos % (Auto) (0.0-4.0) % Baso % (Auto) (0.0-2.0) % Neut # (1.8-7.0) K/uL Lymph # (1.0-4.3) K/uL [place] # (0.0-0.8) K/uL Eos # (0.0-0.7) K/uL Baso # (0.0-0.2) K/uL Sodium 164 H* (132-148) mmol/L Potassium 4.5 (3.6-5.2) mmol/L Chloride 135 H (98-107) mmol/L Carbon Dioxide 22 (22-30) mmol/L Anion Gap 12 (10-20) BUN 29 H (7-17) mg/dL Creatinine 0.8 (0.7-1.2) MG/DL Est GFR ( Amer) > 60 Est GFR (Non-Af Amer) > 60 POC Glucose (mg/dL) 229 H 326 H (65-110) mg/dL Random Glucose 199 H (65-105) mg/dL Calcium 7.3 L (8.6-10.4) mg/dl Phosphorus 2.0 L (2.5-4.5) mg/dL Magnesium 3.2 H (1.6-2.3) mg/dL Total Bilirubin 0.3 (0.2-1.3) mg/dL AST 48 H (14-36) U/L ALT 32 (9-52) U/L Alkaline Phosphatase 52 (38-126) U/L Total Protein 5.6 L (6.3-8.3) g/dL Albumin 2.5 L (3.5-5.0) g/dL Globulin 3.1 (2.2-3.9) gm/dL Albumin/Globulin Ratio 0.8 L (1.0-2.1) Laboratory Results - last 24 hr 01/19/17 01/20/17 01/20/17 23:58 05:22 06:14 WBC RBC Hgb Hct MCV MCH MCHC RDW Plt Count MPV Neut % (Auto) Lymph % (Auto) [place] % (Auto) Eos % (Auto) Baso % (Auto) Neut # Lymph # [place] # Eos # Baso # Sodium 164 H* Potassium 4.5 Chloride 135 H Carbon Dioxide 22 Anion Gap 12 BUN 29 H Creatinine 0.8 Est GFR ( Amer) > 60 Est GFR (Non-Af Amer) > 60 POC Glucose (mg/dL) 326 H 229 H Random Glucose 199 H Calcium 7.3 L Phosphorus 2.0 L Magnesium 3.2 H Total Bilirubin 0.3 AST 48 H ALT 32 Alkaline Phosphatase 52 Total Protein 5.6 L Albumin 2.5 L Globulin 3.1 Albumin/Globulin Ratio 0.8 L 01/20/17 01/20/17 01/20/17 06:14 11:41 17:44 WBC 5.5 RBC 3.36 L Hgb 10.3 L Hct 32.6 L MCV 96.9 MCH 30.7 MCHC 31.7 L RDW 15.7 H Plt Count 60 L MPV 10.3 Neut % (Auto) 59.0 Lymph % (Auto) 35.3 [place] % (Auto) 4.8 Eos % (Auto) 0.7 Baso % (Auto) 0.2 Neut # 3.3 Lymph # 2.0 [place] # 0.3 Eos # 0.0 Baso # 0.0 Sodium Potassium Chloride Carbon Dioxide Anion Gap BUN Creatinine Est GFR ( Amer) Est GFR (Non-Af Amer) POC Glucose (mg/dL) 201 H 270 H Random Glucose Calcium Phosphorus Magnesium Total Bilirubin AST ALT Alkaline Phosphatase Total Protein Albumin Globulin Albumin/Globulin Ratio Critical Care Progress Note - Nutrition Nutrition: Nutrition Category Date Time Status Dysphagia/Modified Consistency Diet [DIET] Diets 01/20/17 Dinner Active Attending/Attestation - Attestation I have personally seen and examined this patient.: Yes I have fully participated in the care of the patient.: Yes I have reviewed all pertinent clinical information: Yes Notes (Text): 01/20/17 18:30 Patient seen and examined in the intensive care unit. Case discussed with house staff in the morning rounds. Continue IV fluids Monitor sodium level every 4 hours Continue antibiotics Follow-up culture and sensitivity
--- NOTE | 2017-01-20 15:45 | CP.PCM.PN ---
Subjective - Date & Time of Evaluation Date of Evaluation: 01/20/17 Time of Evaluation: 13:25 - Subjective Subjective: Patient was seen and examined in ICU Patient remains obtunded Family is present at bedside. Objective - Vital Signs/Intake and Output Vital Signs (last 24 hours): Temp Pulse Resp BP Pulse Ox 98.6 F 58 L 16 121/51 L 100 01/20/17 12:00 01/20/17 15:00 01/20/17 15:00 01/20/17 14:56 01/20/17 15:00 Intake and Output: 01/20/17 01/20/17 06:59 18:59 Intake Total 1550 900 Output Total 840 670 Balance 710 230 - Medications Medications: Current Medications Famotidine (Pepcid) 20 mg IVP DAILY [facility] Last Admin: 01/20/17 09:36 Dose: 20 mg Potassium Chloride/Dextrose/Sod Cl (Potassium Chl 20 Meq In D5-1/2ns) 1,000 mls @ 100 mls/hr IV .Q10H GABRIELA Last Admin: 01/20/17 05:59 Dose: 100 mls/hr Ceftriaxone Sodium 1 gm/ (Sodium Chloride) 100 mls @ 100 mls/hr IVPB DAILY GABRIELA Last Admin: 01/20/17 09:36 Dose: 100 mls/hr Insulin Human Regular (Novolin R) 0 unit SC Q6 GABRIELA PRN Reason: Protocol Last Admin: 01/20/17 12:33 Dose: 3 unit - Labs Labs: 01/20/17 06:14 01/20/17 06:14 PT 12.6 SECONDS (9.7-12.2) H 01/18/17 19:33 INR 1.1 01/18/17 19:33 APTT 23 SECONDS (21-34) 01/18/17 19:33 - Head Exam Head Exam: ATRAUMATIC, NORMOCEPHALIC - Eye Exam Eye Exam: Normal appearance - ENT Exam ENT Exam: Mucous Membranes Moist - Respiratory Exam Respiratory Exam: Clear to Ausculation Bilateral - Cardiovascular Exam Cardiovascular Exam: REGULAR RHYTHM, +S1, +S2 - GI/Abdominal Exam GI & Abdominal Exam: absent: Tenderness - Extremities Exam Extremities Exam: absent: Pedal Edema - Neurological Exam Additional comments: Obtunded. Nonverbal at this time. Assessment and Plan (1) Hypernatremia Status: Acute (2) Hyperglycemia Status: Acute (3) Constipation Status: Acute (4) Severe dehydration Status: Acute - Assessment and Plan (Free Text) Plan: Continue IV fluids. Hyponatremia is improving. Continue to monitor metabolic panel periodically. Patient's blood sugars are better controlled now. Patient is still not a candidate for oral feeding because of metabolic encephalopathy. Patient is empirically on IV antibiotics. I discussed the plan of care with the ICU Discussed with the nursing staff.
[2017-01-21] MEDS: (Novolin R) Insulin Human Regular 100 units/ml vial SC SCH ×5 (00:54→21:51)
[2017-01-21] MEDS: Potassium Ch 20mEq in D5-1/2NS 1,000 ML IV SCH ×3 (03:41→10:46)
[2017-01-21 06:28] LABS: BASO % 0.2 % (0.0-2.0); EOS % 0.7 % (0.0-4.0); HEMATOCRIT 32.6 % (34.0-47.0); LYMPH # 2.5 K/uL (1.0-4.3); LYMPH % 48.1 % (20.0-40.0); MEAN CELL VOLUME 96.4 fL (81.0-99.0); MEAN CORPUSCULAR HEMOGLOBIN 30.7 pg (27.0-31.0); MEAN CORPUSCULAR HGB CONC 31.9 g/dL (33.0-37.0); MEAN PLATELET VOLUME 10.3 fL (7.2-11.7); MONO # 0.2 K/uL (0.0-0.8); MONO % 3.6 % (0.0-10.0); NRBC % 0.3 % (0.0-2.0); RED CELL DISTRIBUTION WIDTH 15.4 % (11.5-14.5); WHITE BLOOD COUNT 5.3 K/uL (4.8-10.8)
[2017-01-21 06:56] LABS: ALB/GLOB RATIO 0.7 (1.0-2.1); ALKALINE PHOSPHATASE 56 U/L (38-126); ALT/SGPT 32 U/L (9-52); AST/SGOT 39 U/L (14-36); BILIRUBIN,TOTAL 0.3 mg/dL (0.2-1.3); BLOOD UREA NITROGEN 19 mg/dL (7-17); CALCIUM 7.6 mg/dl (8.6-10.4); CARBON DIOXIDE 19 mmol/L (22-30); CHLORIDE 128 mmol/L (98-107); GFR AFRICAN-AMERICAN > 60; GLUCOSE,RANDOM 201 mg/dL (65-105); MAGNESIUM 2.8 mg/dL (1.6-2.3); PHOSPHOROUS 1.8 mg/dL (2.5-4.5); POTASSIUM 4.8 mmol/L (3.6-5.2); SODIUM 157 mmol/L (132-148)
--- NOTE | 2017-01-21 07:53 | CP.CCUPN ---
CCU Subjective - Physician Review Subjective (Free Text): Patient was seen and examined this AM with family by side. Patient is obtunded and nonresponsive, ROS is not obtainable. 01/21/17 15:09 CCU Objective - Vital Signs / Intake & Output Vital Signs (Last 4 hours): Vital Signs Temp Pulse Resp BP Pulse Ox 01/21/17 07:00 56 L 14 99 01/21/17 06:00 54 L 14 99 01/21/17 05:56 53 L 14 117/50 L 98 01/21/17 05:53 52 L 13 115/52 L 99 01/21/17 05:02 58 L 14 98 01/21/17 05:00 59 L 12 98 01/21/17 04:00 98 F 52 L 12 98 01/21/17 03:56 46 L 17 109/56 L 98 Intake and Output (Last 8hrs): Intake & Output 01/20/17 01/21/17 01/21/17 22:59 06:59 14:59 Intake Total 1040 800 100 Output Total 410 590 Balance 630 210 100 Weight 141 lb Intake: Intake, IV Amount 800 800 100 Right Hand 800 800 100 Oral 240 Output: Urine 410 590 Urethral (Peguero) 410 590 Other: # Bowel Movements 0 - Physical Exam Head: Positive for: Atraumatic Pupils: Positive for: PERRL Extroacular Muscles: Positive for: EOMI Mouth: Positive for: Moist Mucous Membranes Respiratory/Chest: Positive for: Clear to Auscultation. Negative for: Wheezes, Rales, Rhonchi Cardiovascular: Positive for: Regular Rate and Rhythm, Normal S1, S2 Abdomen: Positive for: Tenderness, Normal Bowel Sounds Neurological: Positive for: Other (altered) Skin: Positive for: Warm, Dry, Normal Color Psychiatric: Negative for: Alert - Medications Active Medications: Active Medications Generic Name Dose Route Start Last Admin Trade Name Freq PRN Reason Stop Dose Admin Famotidine 20 mg 01/19/17 10:00 01/20/17 09:36 Pepcid IVP 20 mg DAILY GABRIELA Administration Potassium Chloride/Dextrose/Sod Cl 1,000 mls @ 100 mls/hr 01/19/17 07:30 03:42 Potassium Chl 20 Meq In D5-1/2ns IV 100 mls/hr .Q10H GABRIELA Administration Ceftriaxone Sodium 1 gm/ 100 mls @ 100 mls/hr 01/19/17 10:00 01/20/17 09:36 Sodium Chloride IVPB 100 mls/hr DAILY GABRIELA Administration Insulin Human Regular 0 unit 01/21/17 07:30 Novolin R SC ACHS [facility] Protocol - Patient Studies Lab Studies: Microbiology Studies 01/18/17 Unknown MRSA Culture (Admit) - Final Naris MRSA NOT DETECTED Lab Studies 01/21/17 01/21/17 01/21/17 Range/Units 07:47 06:22 06:22 WBC 5.3 (4.8-10.8) K/uL RBC 3.38 L (3.80-5.20) Mil/uL Hgb 10.4 L (11.0-16.0) g/dL Hct 32.6 L (34.0-47.0) % MCV 96.4 (81.0-99.0) fL MCH 30.7 (27.0-31.0) pg MCHC 31.9 L (33.0-37.0) g/dL RDW 15.4 H (11.5-14.5) % Plt Count 60 L (130-400) K/uL MPV 10.3 (7.2-11.7) fL Neut % (Auto) 47.4 L (50.0-75.0) % Lymph % (Auto) 48.1 H (20.0-40.0) % [place] % (Auto) 3.6 (0.0-10.0) % Eos % (Auto) 0.7 (0.0-4.0) % Baso % (Auto) 0.2 (0.0-2.0) % Neut # 2.5 (1.8-7.0) K/uL Lymph # 2.5 (1.0-4.3) K/uL [place] # 0.2 (0.0-0.8) K/uL Eos # 0.0 (0.0-0.7) K/uL Baso # 0.0 (0.0-0.2) K/uL Sodium 157 H (132-148) mmol/L Potassium 4.8 (3.6-5.2) mmol/L Chloride 128 H (98-107) mmol/L Carbon Dioxide 19 L (22-30) mmol/L Anion Gap 15 (10-20) BUN 19 H (7-17) mg/dL Creatinine 0.7 (0.7-1.2) MG/DL Est GFR ( Amer) > 60 Est GFR (Non-Af Amer) > 60 POC Glucose (mg/dL) 234 H (65-110) mg/dL Random Glucose 201 H (65-105) mg/dL Calcium 7.6 L (8.6-10.4) mg/dl Phosphorus 1.8 L (2.5-4.5) mg/dL Magnesium 2.8 H (1.6-2.3) mg/dL Total Bilirubin 0.3 (0.2-1.3) mg/dL AST 39 H (14-36) U/L ALT 32 (9-52) U/L Alkaline Phosphatase 56 (38-126) U/L Total Protein 6.0 L (6.3-8.3) g/dL Albumin 2.6 L (3.5-5.0) g/dL Globulin 3.5 (2.2-3.9) gm/dL Albumin/Globulin Ratio 0.7 L (1.0-2.1) 01/21/17 01/20/17 01/20/17 Range/Units 05:18 23:24 17:44 WBC (4.8-10.8) K/uL RBC (3.80-5.20) Mil/uL Hgb (11.0-16.0) g/dL Hct (34.0-47.0) % MCV (81.0-99.0) fL MCH (27.0-31.0) pg MCHC (33.0-37.0) g/dL RDW (11.5-14.5) % Plt Count (130-400) K/uL MPV (7.2-11.7) fL Neut % (Auto) (50.0-75.0) % Lymph % (Auto) (20.0-40.0) % [place] % (Auto) (0.0-10.0) % Eos % (Auto) (0.0-4.0) % Baso % (Auto) (0.0-2.0) % Neut # (1.8-7.0) K/uL Lymph # (1.0-4.3) K/uL [place] # (0.0-0.8) K/uL Eos # (0.0-0.7) K/uL Baso # (0.0-0.2) K/uL Sodium (132-148) mmol/L Potassium (3.6-5.2) mmol/L Chloride (98-107) mmol/L Carbon Dioxide (22-30) mmol/L Anion Gap (10-20) BUN (7-17) mg/dL Creatinine (0.7-1.2) MG/DL Est GFR ( Amer) Est GFR (Non-Af Amer) POC Glucose (mg/dL) 269 H 363 H 270 H (65-110) mg/dL Random Glucose (65-105) mg/dL Calcium (8.6-10.4) mg/dl Phosphorus (2.5-4.5) mg/dL Magnesium (1.6-2.3) mg/dL Total Bilirubin (0.2-1.3) mg/dL AST (14-36) U/L ALT (9-52) U/L Alkaline Phosphatase (38-126) U/L Total Protein (6.3-8.3) g/dL Albumin (3.5-5.0) g/dL Globulin (2.2-3.9) gm/dL Albumin/Globulin Ratio (1.0-2.1) 01/20/17 Range/Units 11:41 WBC (4.8-10.8) K/uL RBC (3.80-5.20) Mil/uL Hgb (11.0-16.0) g/dL Hct (34.0-47.0) % MCV (81.0-99.0) fL MCH (27.0-31.0) pg MCHC (33.0-37.0) g/dL RDW (11.5-14.5) % Plt Count (130-400) K/uL MPV (7.2-11.7) fL Neut % (Auto) (50.0-75.0) % Lymph % (Auto) (20.0-40.0) % [place] % (Auto) (0.0-10.0) % Eos % (Auto) (0.0-4.0) % Baso % (Auto) (0.0-2.0) % Neut # (1.8-7.0) K/uL Lymph # (1.0-4.3) K/uL [place] # (0.0-0.8) K/uL Eos # (0.0-0.7) K/uL Baso # (0.0-0.2) K/uL Sodium (132-148) mmol/L Potassium (3.6-5.2) mmol/L Chloride (98-107) mmol/L Carbon Dioxide (22-30) mmol/L Anion Gap (10-20) BUN (7-17) mg/dL Creatinine (0.7-1.2) MG/DL Est GFR ( Amer) Est GFR (Non-Af Amer) POC Glucose (mg/dL) 201 H (65-110) mg/dL Random Glucose (65-105) mg/dL Calcium (8.6-10.4) mg/dl Phosphorus (2.5-4.5) mg/dL Magnesium (1.6-2.3) mg/dL Total Bilirubin (0.2-1.3) mg/dL AST (14-36) U/L ALT (9-52) U/L Alkaline Phosphatase (38-126) U/L Total Protein (6.3-8.3) g/dL Albumin (3.5-5.0) g/dL Globulin (2.2-3.9) gm/dL Albumin/Globulin Ratio (1.0-2.1) Laboratory Results - last 24 hr 01/20/17 01/20/17 01/20/17 11:41 17:44 23:24 WBC RBC Hgb Hct MCV MCH MCHC RDW Plt Count MPV Neut % (Auto) Lymph % (Auto) [place] % (Auto) Eos % (Auto) Baso % (Auto) Neut # Lymph # [place] # Eos # Baso # Sodium Potassium Chloride Carbon Dioxide Anion Gap BUN Creatinine Est GFR ( Amer) Est GFR (Non-Af Amer) POC Glucose (mg/dL) 201 H 270 H 363 H Random Glucose Calcium Phosphorus Magnesium Total Bilirubin AST ALT Alkaline Phosphatase Total Protein Albumin Globulin Albumin/Globulin Ratio 01/21/17 01/21/17 01/21/17 05:18 06:22 06:22 WBC 5.3 RBC 3.38 L Hgb 10.4 L Hct 32.6 L MCV 96.4 MCH 30.7 MCHC 31.9 L RDW 15.4 H Plt Count 60 L MPV 10.3 Neut % (Auto) 47.4 L Lymph % (Auto) 48.1 H [place] % (Auto) 3.6 Eos % (Auto) 0.7 Baso % (Auto) 0.2 Neut # 2.5 Lymph # 2.5 [place] # 0.2 Eos # 0.0 Baso # 0.0 Sodium 157 H Potassium 4.8 Chloride 128 H Carbon Dioxide 19 L Anion Gap 15 BUN 19 H Creatinine 0.7 Est GFR ( Amer) > 60 Est GFR (Non-Af Amer) > 60 POC Glucose (mg/dL) 269 H Random Glucose 201 H Calcium 7.6 L Phosphorus 1.8 L Magnesium 2.8 H Total Bilirubin 0.3 AST 39 H ALT 32 Alkaline Phosphatase 56 Total Protein 6.0 L Albumin 2.6 L Globulin 3.5 Albumin/Globulin Ratio 0.7 L 01/21/17 07:47 WBC RBC Hgb Hct MCV MCH MCHC RDW Plt Count MPV Neut % (Auto) Lymph % (Auto) [place] % (Auto) Eos % (Auto) Baso % (Auto) Neut # Lymph # [place] # Eos # Baso # Sodium Potassium Chloride Carbon Dioxide Anion Gap BUN Creatinine Est GFR ( Amer) Est GFR (Non-Af Amer) POC Glucose (mg/dL) 234 H Random Glucose Calcium Phosphorus Magnesium Total Bilirubin AST ALT Alkaline Phosphatase Total Protein Albumin Globulin Albumin/Globulin Ratio Fingerstick Blood Sugar Results: 269 Review of Systems - Review of Systems Systems not reviewed;Unavailable: Dementia Critical Care Progress Note - Nutrition Nutrition: Nutrition Category Date Time Status Dysphagia/Modified Consistency Diet [DIET] Diets 01/20/17 Dinner Active Assessment/Plan - Assessment and Plan (Free Text) Assessment: 86 y/o female with PMH of dementia, IDDM, Anemia, HTN, Hypercholesterolemia, Osteoporosis and Depression admitted with altered mental status Neuro: AMS/Electrolyte imbalance - hypernatremia trending toward normal - possibly 2/2 to dehydration - 1/2NS @ 100 cc/hr Renal: Hypernatremia/renal insuffiency - Resolved - possibly 2/2 to dehydration - hypernatremia trending toward normal - 1/2NS @ 100 cc/hr - hold [facility] GI: constipation - CT abdomen showing constipation with fecal retention in large bowel Endo: hx of DM2 - RISS medium dose protocol q6 - lantus 10u sc hs - HgbA1C 12.9 ID: afebrile; normal wbc; procalcitonin wnl; lactic acid wnl - rocephin 1g iv daily for urinary retention, atelectesis - UA negative; urine culture with no growth; Blood cultures negative up to date Heme: thrombocytopenia - monitor platelet count, H/H MSK: left heel DTI, right buttock DTI x2 - would care on board Prophylaxis: - GI: famotidine 20mg iv daily - DVT: SCDs; low platelets - contraindication for anticoagulation
[2017-01-21] MEDS ORDERED: Potassium & Sodium Phosphate PO ONE (10:13)
[2017-01-21] MEDS: Sodium Chloride 0.45% 1,000 ML IV SCH ×2 (11:00→20:20)
[2017-01-21 16:26] VITALS: RESP 20
[2017-01-21] MEDS: (Lantus) Insulin Glargine, Recombinant SC SCH (21:55)
[2017-01-22] MEDS: Sodium Chloride 0.45% 1,000 ML IV SCH ×3 (04:49→17:04)
--- NOTE | 2017-01-22 07:47 | CP.PCM.PN ---
<Jimmy Fournier - Last Filed: 01/22/17 14:30> Subjective - Date & Time of Evaluation Date of Evaluation: 01/22/17 Time of Evaluation: 07:45 - Subjective Subjective: PGY1 for Dr. Byrd HPI: Patient seen and examined at bedside. Still obtunded. Not oriented to person place or time. Daughter at bedside says sometimes she is able to communicate but sometimes she cannot. Remainder of ROS is not attainable. Objective - Vital Signs/Intake and Output Vital Signs (last 24 hours): Temp Pulse Resp BP Pulse Ox 98 F 61 20 116/69 97 01/22/17 07:41 01/22/17 07:41 01/22/17 07:41 01/22/17 07:41 01/22/17 07:41 Intake and Output: 01/22/17 01/22/17 06:59 18:59 Intake Total 1900 Output Total 2200 Balance -300 - Medications Medications: Current Medications Famotidine (Pepcid) 20 mg IVP DAILY [facility] Last Admin: 01/21/17 09:19 Dose: 20 mg Ceftriaxone Sodium 1 gm/ (Sodium Chloride) 100 mls @ 100 mls/hr IVPB DAILY GABRIELA Last Admin: 01/21/17 09:19 Dose: 100 mls/hr Sodium Chloride (Sodium Chloride 0.45%) 1,000 mls @ 100 mls/hr IV .Q10H GABRIELA Last Admin: 01/22/17 06:37 Dose: Not Given Insulin Glargine (Lantus) 10 unit SC HS [facility] Last Admin: 01/21/17 21:55 Dose: 10 units Insulin Human Regular (Novolin R) 0 unit SC ACHS GABRIELA PRN Reason: Protocol Last Admin: 01/21/17 21:51 Dose: 2 unit - Labs Labs: 01/21/17 06:22 01/21/17 06:22 PT 12.6 SECONDS (9.7-12.2) H 01/18/17 19:33 INR 1.1 01/18/17 19:33 APTT 23 SECONDS (21-34) 01/18/17 19:33 - Constitutional Appears: Well, Non-toxic, Chronically Ill - Head Exam Head Exam: ATRAUMATIC, NORMAL INSPECTION, NORMOCEPHALIC - Eye Exam Eye Exam: EOMI - ENT Exam ENT Exam: Mucous Membranes Moist - Respiratory Exam Respiratory Exam: Clear to Ausculation Bilateral, NORMAL BREATHING PATTERN - Cardiovascular Exam Cardiovascular Exam: REGULAR RHYTHM - GI/Abdominal Exam GI & Abdominal Exam: Soft, Tenderness (global tenderness), Normal Bowel Sounds. absent: Distended - Extremities Exam Extremities Exam: absent: Joint Swelling, Tenderness - Neurological Exam Neurological Exam: Altered, Awake - Psychiatric Exam Psychiatric exam: Normal Affect, Normal Mood - Skin Skin Exam: Dry, Intact, Normal Color, Warm Assessment and Plan - Assessment and Plan (Free Text) Assessment: AMS/Electrolyte imbalance * hypernatremia trending toward normal * possibly 2/2 to dehydration * 1/2NS @ 100 cc/hr Constipation * CT abdomen showing constipation with fecal retention in large bowel DM2 * RISS medium dose protocol q6 * lantus 10u sc hs * HgbA1C 12.9 Thrombocytopenia * monitor platelet count, H/H Pressure Ulcer * Wound care on board * Turn Q2 Prophylaxis: * famotidine 20mg iv daily * SCDs; low platelets - contraindication for anticoagulation <Casper Byrd - Last Filed: 01/26/17 23:57> Objective - Vital Signs/Intake and Output Vital Signs (last 24 hours): Temp Pulse Resp BP Pulse Ox 97.7 F 64 20 149/70 98 01/23/17 08:09 01/23/17 08:09 01/23/17 08:09 01/23/17 08:09 01/23/17 08:09 - Labs Labs: 01/23/17 08:37 01/23/17 08:37 PT 12.6 SECONDS (9.7-12.2) H 01/18/17 19:33 INR 1.1 01/18/17 19:33 APTT 23 SECONDS (21-34) 01/18/17 19:33 Assessment and Plan (1) Hypernatremia Status: Acute (2) Hyperglycemia Status: Acute (3) Constipation Status: Acute (4) Severe dehydration Status: Acute Attending/Attestation - Attestation I have personally seen and examined this patient.: Yes I have fully participated in the care of the patient.: Yes I have reviewed all pertinent clinical information, including history, physical exam and plan: Yes Notes (Text): 01/26/17 23:55 patient was seen and examined at bedside with the resident Patient is clinically improving Continue current medical management I discussed the plan of care with the resident and agree with the assessment and plan documented.
[2017-01-22] MEDS: (Novolin R) Insulin Human Regular 100 units/ml vial SC SCH ×5 (08:20→22:19)
[2017-01-22 09:13] LABS: CHLORIDE 117 mmol/L (98-107); POTASSIUM 4.5 mmol/L (3.6-5.2); SODIUM 143 mmol/L (132-148)
[2017-01-22 09:15] LABS: ALB/GLOB RATIO 0.8 (1.0-2.1); AST/SGOT 37 U/L (14-36); BILIRUBIN,TOTAL 0.5 mg/dL (0.2-1.3); CARBON DIOXIDE 17 mmol/L (22-30); GFR AFRICAN-AMERICAN > 60; TOTAL PROTEIN 5.9 g/dL (6.3-8.3)
[2017-01-22 09:16] LABS: ALKALINE PHOSPHATASE 65 U/L (38-126); ALT/SGPT 40 U/L (9-52); BLOOD UREA NITROGEN 14 mg/dL (7-17); CALCIUM 7.5 mg/dl (8.6-10.4); GLUCOSE,RANDOM 184 mg/dL (65-105); PHOSPHOROUS 2.4 mg/dL (2.5-4.5)
--- NOTE | 2017-01-22 15:31 | RAD ---
Chest x-ray single frontal view History: Shortness of breath. Comparison: 01/18/2017 Findings: Biapical pleural thickening with upper lobe granulomatous changes. Scarring at the right lung apex. Diffuse increased interstitial lung markings. Right hilar prominence. Right paratracheal airspace opacity may represent prominent vasculature. Tortuous ectatic aorta. Calcification at the aortic knob. Mild cardiomegaly. Degenerative changes in the spine with paravertebral osteophytes. Surgical clips in the right upper abdomen. Impression: Biapical pleural thickening with upper lobe granulomatous changes. Scarring at the right lung apex. Diffuse increased interstitial lung markings. Right hilar prominence. Right paratracheal airspace opacity may represent prominent vasculature. Tortuous ectatic aorta. Calcification at the aortic knob. Mild cardiomegaly.
[2017-01-22] MEDS: (Lantus) Insulin Glargine, Recombinant SC SCH (22:19)
[2017-01-23 01:05] VITALS: O2SAT 98
[2017-01-23] MEDS: Sodium Chloride 0.45% 1,000 ML IV SCH ×2 (01:28→12:20)
--- NOTE | 2017-01-23 07:16 | CP.PCM.PN ---
Subjective - Date & Time of Evaluation Date of Evaluation: 01/23/17 Time of Evaluation: 07:15 - Subjective Subjective: PGY1 Note for Dr. Espinosa HPI: Patient seen and examined at bedside. Confused at baseline. Daughter at bedside. States mom has history of Alzheimer. We told them about the possibility of rehab but the family would rather take her home. She lives with her daughter. Daughter concerned about the developing pressure ulcer but because there is no break in the skin she was advised about turning/changing positions frequently. We explained to the daughter that her mother would most likely be bed bound when going home. Objective - Vital Signs/Intake and Output Vital Signs (last 24 hours): Temp Pulse Resp BP Pulse Ox 98.7 F 61 20 147/65 98 01/23/17 00:00 01/23/17 00:00 01/23/17 00:00 01/23/17 00:00 01/23/17 00:00 Intake and Output: 01/23/17 01/23/17 06:59 18:59 Intake Total 1960 Output Total 1550 Balance 410 - Medications Medications: Current Medications Famotidine (Pepcid) 20 mg IVP DAILY [facility] Last Admin: 01/22/17 09:05 Dose: 20 mg Ceftriaxone Sodium 1 gm/ (Sodium Chloride) 100 mls @ 100 mls/hr IVPB DAILY [facility] Last Admin: 01/22/17 10:04 Dose: 100 mls/hr Sodium Chloride (Sodium Chloride 0.45%) 1,000 mls @ 100 mls/hr IV .Q10H GABRIELA Last Admin: 01/23/17 01:28 Dose: 100 mls/hr Insulin Glargine (Lantus) 10 unit SC HS [facility] Last Admin: 01/22/17 22:19 Dose: 10 units Insulin Human Regular (Novolin R) 0 unit SC ACHS GABRIELA PRN Reason: Protocol Last Admin: 01/22/17 22:19 Dose: 3 unit - Labs Labs: 01/21/17 06:22 01/22/17 08:55 PT 12.6 SECONDS (9.7-12.2) H 01/18/17 19:33 INR 1.1 01/18/17 19:33 APTT 23 SECONDS (21-34) 01/18/17 19:33 - Constitutional Appears: Chronically Ill - Head Exam Head Exam: ATRAUMATIC, NORMAL INSPECTION, NORMOCEPHALIC - Eye Exam Eye Exam: EOMI Pupil Exam: NORMAL ACCOMODATION - ENT Exam ENT Exam: Mucous Membranes Moist - Respiratory Exam Respiratory Exam: Clear to Ausculation Bilateral, NORMAL BREATHING PATTERN - Cardiovascular Exam Cardiovascular Exam: REGULAR RHYTHM - GI/Abdominal Exam GI & Abdominal Exam: Soft, Normal Bowel Sounds. absent: Distended, Tenderness - Extremities Exam Extremities Exam: absent: Joint Swelling, Tenderness - Back Exam Additional comments: pressure ulcer, no break in skin - Neurological Exam Neurological Exam: Altered, Awake - Skin Skin Exam: Dry, Intact, Normal Color, Warm Assessment and Plan - Assessment and Plan (Free Text) Assessment: AMS/Electrolyte imbalance * hypernatremia normalized * possibly 2/2 to dehydration * 1/2NS @ 100 cc/hr Constipation * CT abdomen showing constipation with fecal retention in large bowel DM2 * RISS medium dose protocol q6 * lantus 10u sc hs * HgbA1C 12.9 Thrombocytopenia * monitor platelet count, H/H Pressure Ulcer * Wound care on board * Turn Q2 Prophylaxis: * famotidine 20mg iv daily * SCDs; low platelets - contraindication for anticoagulation
[2017-01-23 08:11] VITALS: BP 149/70; PULSE 64; TEMP 97.7
[2017-01-23] MEDS: (Novolin R) Insulin Human Regular 100 units/ml vial SC SCH ×3 (08:25→17:10)
[2017-01-23 08:41] LABS: BASO % 0.2 % (0.0-2.0); EOS # 0.1 K/uL (0.0-0.7); EOS % 1.4 % (0.0-4.0); HEMATOCRIT 32.1 % (34.0-47.0); LYMPH # 2.1 K/uL (1.0-4.3); LYMPH % 46.7 % (20.0-40.0); MEAN CORPUSCULAR HEMOGLOBIN 30.8 pg (27.0-31.0); MEAN CORPUSCULAR HGB CONC 33.2 g/dL (33.0-37.0); MEAN PLATELET VOLUME 9.5 fL (7.2-11.7); MONO # 0.2 K/uL (0.0-0.8); MONO % 5.4 % (0.0-10.0); NRBC % 0.1 % (0.0-2.0); WHITE BLOOD COUNT 4.5 K/uL (4.8-10.8)
[2017-01-23 08:55] LABS: ALB/GLOB RATIO 0.8 (1.0-2.1); ALKALINE PHOSPHATASE 60 U/L (38-126); ALT/SGPT 49 U/L (9-52); AST/SGOT 54 U/L (14-36); BILIRUBIN,TOTAL 0.4 mg/dL (0.2-1.3); BLOOD UREA NITROGEN 12 mg/dL (7-17); CALCIUM 8.4 mg/dl (8.6-10.4); CARBON DIOXIDE 16 mmol/L (22-30); CHLORIDE 111 mmol/L (98-107); GFR AFRICAN-AMERICAN > 60; GLUCOSE,RANDOM 221 mg/dL (65-105); MAGNESIUM 1.7 mg/dL (1.6-2.3); PHOSPHOROUS 2.9 mg/dL (2.5-4.5); POTASSIUM 3.8 mmol/L (3.6-5.2); SODIUM 140 mmol/L (132-148); TOTAL PROTEIN 6.2 g/dL (6.3-8.3)
[2017-01-23 08:58] LABS: MEAN CELL VOLUME 92.6 fL (81.0-99.0)
--- NOTE | 2017-01-23 11:47 | CP.PCM.CON ---
History of Present Illness - History of Present Illness History of Present Illness: Palliative Consult Requested by Shantanu ROBLERO reason: Goals of care Patient is a 86 yo woman, admitted from home with abdominal pain and constipation, abdominal bloating X 1 week. Upon admission, BS 414 and hb A1C 12.9. The Ct scan of abd was significant for fecal retention. patient was able to have BM yesterday. Initially patient was obtuned and unresponsive, but during this hospital stay, she become more responsive. PMH: dementia, anemia, depression, osteoporosis, CKD Soc, Hx: , from prostate cancer, lives at home with one of the daughters and foreclosure home inspector Juancho. hx: patient's daughter un aware of any significant family hx: except that her father from prostate cancer Review of Systems - Review of Systems All systems: reviewed and no additional remarkable complaints except Review of Systems: ROS obtained from daughter at bed side. As per daughter, patient is back to her norm. Past Patient History - Infectious Disease Hx of Infectious Diseases: None - Past Medical History & Family History Past Medical History?: Yes - Past Social History Smoking Status: Heavy Smoker > 10 Cigarettes Daily Alcohol: None - CARDIAC Hx Hypercholesterolemia: Yes Hx Hypertension: Yes - PULMONARY Hx Respiratory Disorders: No - NEUROLOGICAL Hx Dementia: Yes - HEENT Hx HEENT Problems: Yes Hx Cataracts: Yes - RENAL Hx Chronic Kidney Disease: No - ENDOCRINE/METABOLIC Hx Diabetes Mellitus Type 1: Yes - HEMATOLOGICAL/ONCOLOGICAL Hx Anemia: Yes - INTEGUMENTARY Hx Dermatological Problems: No - MUSCULOSKELETAL/RHEUMATOLOGICAL Hx Osteoporosis: Yes - GASTROINTESTINAL Hx Gastrointestinal Disorders: No - GENITOURINARY/GYNECOLOGICAL Hx Genitourinary Disorders: No - PSYCHIATRIC Hx Depression: Yes Hx Substance Use: No - SURGICAL HISTORY Hx Cataract Extraction: Yes Hx Cholecystectomy: Yes Hx Hysterectomy: Yes - ANESTHESIA Hx Anesthesia: Yes Hx Anesthesia Reactions: No Hx Malignant Hyperthermia: No Has any member of the family had a problem w/ anesthesia?: No Meds Allergies/Adverse Reactions: Allergies Allergy/AdvReac Type Severity Reaction Status Date / Time No Known Allergies Allergy Verified 01/18/17 18:27 - Medications Medications: Current Medications Famotidine (Pepcid) 20 mg IVP DAILY [facility] Last Admin: 01/23/17 09:27 Dose: 20 mg Ceftriaxone Sodium 1 gm/ (Sodium Chloride) 100 mls @ 100 mls/hr IVPB DAILY [facility] Last Admin: 01/23/17 09:27 Dose: 100 mls/hr Sodium Chloride (Sodium Chloride 0.45%) 1,000 mls @ 100 mls/hr IV .Q10H [facility] Last Admin: 01/23/17 01:28 Dose: 100 mls/hr Insulin Glargine (Lantus) 10 unit SC HS [facility] Last Admin: 01/22/17 22:19 Dose: 10 units Insulin Human Regular (Novolin R) 0 unit SC ACHS [facility] PRN Reason: Protocol Last Admin: 01/23/17 08:25 Dose: 2 unit Physical Exam - Constitutional Appears: No Acute Distress - Head Exam Head Exam: ATRAUMATIC, NORMAL INSPECTION, NORMOCEPHALIC - Eye Exam Eye Exam: EOMI, Normal appearance, PERRL Pupil Exam: NORMAL ACCOMODATION, PERRL - ENT Exam ENT Exam: Mucous Membranes Moist, Normal Exam - Neck Exam Neck exam: Positive for: Normal Inspection - Respiratory Exam Respiratory Exam: Decreased Breath Sounds, NORMAL BREATHING PATTERN - Cardiovascular Exam Cardiovascular Exam: REGULAR RHYTHM - GI/Abdominal Exam GI & Abdominal Exam: Normal Bowel Sounds, Soft - Rectal Exam Rectal Exam: Deferred - Extremities Exam Extremities exam: Positive for: normal inspection, pedal edema - Back Exam Back exam: NORMAL INSPECTION - Neurological Exam Neurological exam: Alert - Psychiatric Exam Psychiatric exam: Normal Affect, Normal Mood - Skin Skin Exam: Normal Color, Warm Results - Vital Signs Recent Vital Signs: Last Vital Signs Temp 97.7 F 01/23/17 08:09 Pulse 64 01/23/17 08:09 Resp 20 01/23/17 08:09 BP 149/70 01/23/17 08:09 Pulse Ox 98 01/23/17 08:09 - Labs Result Diagrams: 01/23/17 08:37 01/23/17 08:37 Labs: Laboratory Results - last 24 hr 01/22/17 01/22/17 01/23/17 16:47 21:53 07:23 WBC RBC Hgb Hct MCV MCH MCHC RDW Plt Count MPV Neut % (Auto) Lymph % (Auto) [place] % (Auto) Eos % (Auto) Baso % (Auto) Neut # Lymph # [place] # Eos # Baso # Sodium Potassium Chloride Carbon Dioxide Anion Gap BUN Creatinine Est GFR ( Amer) Est GFR (Non-Af Amer) POC Glucose (mg/dL) 290 H 233 H 186 H Random Glucose Calcium Phosphorus Magnesium Total Bilirubin AST ALT Alkaline Phosphatase Total Protein Albumin Globulin Albumin/Globulin Ratio 01/23/17 01/23/17 01/23/17 08:37 08:37 11:28 WBC 4.5 L RBC 3.47 L Hgb 10.7 L Hct 32.1 L MCV 92.6 D MCH 30.8 MCHC 33.2 RDW 14.0 Plt Count 98 L D MPV 9.5 Neut % (Auto) 46.3 L Lymph % (Auto) 46.7 H [place] % (Auto) 5.4 Eos % (Auto) 1.4 Baso % (Auto) 0.2 Neut # 2.1 Lymph # 2.1 [place] # 0.2 Eos # 0.1 Baso # 0.0 Sodium 140 Potassium 3.8 Chloride 111 H Carbon Dioxide 16 L Anion Gap 17 BUN 12 Creatinine 0.6 L Est GFR ( Amer) > 60 Est GFR (Non-Af Amer) > 60 POC Glucose (mg/dL) 269 H Random Glucose 221 H Calcium 8.4 L Phosphorus 2.9 Magnesium 1.7 Total Bilirubin 0.4 AST 54 H D ALT 49 Alkaline Phosphatase 60 Total Protein 6.2 L Albumin 2.7 L Globulin 3.5 Albumin/Globulin Ratio 0.8 L Assessment & Plan - Assessment and Plan (Free Text) Assessment: Palliative consult Code status Full Code, no advance directive on chart, PPS 10% I reviewed medical records, all diagnostic studies, examined patient in the bed and discussed goals of care with daughter Patience at bed side. Patient is alert, says " Hi" in [place] when approached and in no acute distress. Breath sounds are normal, there is no cough/ SOB noted. Abdomen is soft, last Bm yesterday. Daughter claims patient eats well and is back to her base condition. VS stable. denies pain. Discharge home pending. Goals of care discussed with daughter. She is happyb her mother is returning home. daughter claims her sister and foreclosure home inspector of 4 hr a day are enough to assist patient with care. I educated daughter on the need for glycemic control, regular blood sugar check, appropriate diet and fluid intake. She stated understanding. Further we discussed Code Status. Daughter is realistic in her expectations of care given patient's age and Medical Hx. Daughter is happy that her mother reached this age and hope she would have few more to live. I provided daughter with POLST form in [place] language. She wanted to tajke it home and discuss it with other sister before deciding on Code status. I supported her. Impression * An elderly lady admitted with constipation associated symptoms * poor glycemic control * Limited mobility, bed rest X 1 year * Requires max assistance with ADLs * Daughter understands patient's advanced age and has reasonable expectations Suggestions * Agree with discharge Home * Daughter given instructions on POLST written in [place] and was to discuss it with her sister before decision on Code status made
--- NOTE | 2017-01-23 15:13 | CP.PCM.DIS ---
Provider - Provider Date of Admission: 01/18/17 20:26 Attending physician: Dayton Reyes MD Hospital Course - Lab Results Lab Results: Micro Results 01/21/17 Unknown Naris MRSA Culture - Final MRSA NOT DETECTED 01/18/17 Unknown Naris MRSA Culture (Admit) - Final MRSA NOT DETECTED Most Recent Lab Values WBC 4.5 K/uL (4.8-10.8) L 01/23/17 08:37 RBC 3.47 Mil/uL (3.80-5.20) L 01/23/17 08:37 Hgb 10.7 g/dL (11.0-16.0) L 01/23/17 08:37 Hct 32.1 % (34.0-47.0) L 01/23/17 08:37 MCV 92.6 fL (81.0-99.0) D 01/23/17 08:37 MCH 30.8 pg (27.0-31.0) 01/23/17 08:37 MCHC 33.2 g/dL (33.0-37.0) 01/23/17 08:37 RDW 14.0 % (11.5-14.5) 01/23/17 08:37 Plt Count 98 K/uL (130-400) L D 01/23/17 08:37 MPV 9.5 fL (7.2-11.7) 01/23/17 08:37 Neut % (Auto) 46.3 % (50.0-75.0) L 01/23/17 08:37 Lymph % (Auto) 46.7 % (20.0-40.0) H 01/23/17 08:37 [place] % (Auto) 5.4 % (0.0-10.0) 01/23/17 08:37 Eos % (Auto) 1.4 % (0.0-4.0) 01/23/17 08:37 Baso % (Auto) 0.2 % (0.0-2.0) 01/23/17 08:37 Neut # 2.1 K/uL (1.8-7.0) 01/23/17 08:37 Lymph # 2.1 K/uL (1.0-4.3) 01/23/17 08:37 [place] # 0.2 K/uL (0.0-0.8) 01/23/17 08:37 Eos # 0.1 K/uL (0.0-0.7) 01/23/17 08:37 Baso # 0.0 K/uL (0.0-0.2) 01/23/17 08:37 Differential Comment 01/18/17 19:33 PT 12.6 SECONDS (9.7-12.2) H 01/18/17 19:33 INR 1.1 01/18/17 19:33 APTT 23 SECONDS (21-34) 01/18/17 19:33 pO2 78 mm/Hg (30-55) H 01/18/17 19:31 VBG pH 7.37 (7.32-7.43) 01/18/17 19:31 VBG pCO2 38 mmHg (40-60) L 01/18/17 19:31 VBG HCO3 22.6 mmol/L 01/18/17 19:31 VBG Total CO2 23.2 mmol/L (22-28) 01/18/17 19:31 VBG O2 Sat (Calc) 95.5 % (40-65) H 01/18/17 19:31 VBG Base Excess -2.9 mmol/L (0.0-2.0) L 01/18/17 19:31 VBG Potassium 12.2 mmol/L (3.6-5.2) H* 01/18/17 19:31 Sodium 164.0 mmol/l (132-148) H* 01/18/17 19:31 Chloride 140.0 mmol/L (98-107) H 01/18/17 19:31 Glucose 440 mg/dl (65-105) H* 01/18/17 19:31 Lactate 2.6 mmol/L (0.7-2.1) H 01/18/17 19:31 Crit Value Called To Dirk falk 01/18/17 19:31 Crit Value Called By Oli chaudhari 01/18/17 19:31 Crit Value Read Back Y 01/18/17 19:31 Blood Gas Notified Time 193401/18/17 19:31 Sodium 140 mmol/L (132-148) 01/23/17 08:37 Potassium 3.8 mmol/L (3.6-5.2) 01/23/17 08:37 Chloride 111 mmol/L (98-107) H 01/23/17 08:37 Carbon Dioxide 16 mmol/L (22-30) L 01/23/17 08:37 Anion Gap 17 (10-20) 01/23/17 08:37 BUN 12 mg/dL (7-17) 01/23/17 08:37 Creatinine 0.6 MG/DL (0.7-1.2) L 01/23/17 08:37 Est GFR ( Amer) > 60 01/23/17 08:37 Est GFR (Non-Af Amer) > 60 01/23/17 08:37 POC Glucose (mg/dL) 269 mg/dL (65-110) H 01/23/17 11:28 Random Glucose 221 mg/dL (65-105) H 01/23/17 08:37 Hemoglobin A1c 12.9 % (4.2-6.5) H 01/19/17 06:25 Lactic Acid 1.0 mmol/L (0.7-2.1) 01/19/17 00:37 Calcium 8.4 mg/dl (8.6-10.4) L 01/23/17 08:37 Phosphorus 2.9 mg/dL (2.5-4.5) 01/23/17 08:37 Magnesium 1.7 mg/dL (1.6-2.3) 01/23/17 08:37 Total Bilirubin 0.4 mg/dL (0.2-1.3) 01/23/17 08:37 AST 54 U/L (14-36) H D 01/23/17 08:37 ALT 49 U/L (9-52) 01/23/17 08:37 Alkaline Phosphatase 60 U/L (38-126) 01/23/17 08:37 Total Protein 6.2 g/dL (6.3-8.3) L 01/23/17 08:37 Albumin 2.7 g/dL (3.5-5.0) L 01/23/17 08:37 Globulin 3.5 gm/dL (2.2-3.9) 01/23/17 08:37 Albumin/Globulin Ratio 0.8 (1.0-2.1) L 01/23/17 08:37 Lipase 202 U/L (23-300) 01/18/17 19:54 Vitamin B12 810 pg/mL (239-931) 01/19/17 06:25 Procalcitonin 0.20 NG/ML (0.19-0.49) 01/19/17 06:25 TSH 3rd Generation 0.64 mIU/L (0.46-4.68) 01/19/17 06:25 Venous Blood Potassium 12.2 mmol/L (3.6-5.2) H* 01/18/17 19:31 Urine Color Yellow (YELLOW) 01/18/17 19:33 Urine Clarity Clear (Clear) 01/18/17 19:33 Urine pH 5.0 (5.0-8.0) 01/18/17 19:33 Ur Specific [place] 1.029 (1.003-1.030) 01/18/17 19:33 Urine Protein Negative mg/dL (NEGATIVE) 01/18/17 19:33 Urine Glucose (UA) 3+ mg/dL (Normal) H 01/18/17 19:33 Urine Ketones Negative mg/dL (NEGATIVE) 01/18/17 19:33 Urine Blood Negative (NEGATIVE) 01/18/17 19:33 Urine Nitrate Negative (NEGATIVE) 01/18/17 19:33 Urine Bilirubin Negative (NEGATIVE) 01/18/17 19:33 Urine Urobilinogen Normal mg/dL (0.2-1.0) 01/18/17 19:33 Ur Leukocyte Esterase Neg Tomy/uL (Negative) 01/18/17 19:33 Urine WBC (Auto) 1 /hpf (0-5) 01/18/17 19:33 Serum Ketones Negative (NEGATIVE) 01/18/17 19:54 Discharge Exam - Head Exam Head Exam: ATRAUMATIC, NORMAL INSPECTION, NORMOCEPHALIC Discharge Plan - Follow Up Plan Condition: CRITICAL Disposition: HOME/ ROUTINE Instructions: Dehydration (DC), Diabetic Hyperglycemia (DC), Hypernatremia (DC) Additional Instructions: Patient is clear for discharge home. She will have home physical therapy and a home health aid come to the house to help her regain strength and take her medications. She should follow up with her primary care physician in one week. She should call to make an appointment. If symptoms return or worsen she should come back to the ER. Referrals: Mehul Johnson MD [Staff Provider] -
== END 2017-01-23 19:20 | disposition home or self-care (01) | DRG 392 ==
LOC: C.ER 18:09 → C.9E 20:26 → C.9I 20:49 → C.3T 01-21 13:38
PROVIDERS: ADMIT Internal Medicine; ATTEND Internal Medicine
DX: K59.09 Other constipation (principal); L89.159 Pressure ulcer of sacral region, unspecified stage; E87.0 Hyperosmolality and hypernatremia; D69.6 Thrombocytopenia, unspecified; E11.22 Type 2 diabetes mellitus with diabetic chronic kidney disease; E11.65 Type 2 diabetes mellitus with hyperglycemia; G30.9 Alzheimer's disease, unspecified; F02.80 Dementia in other diseases classified elsewhere, unspecified severity, without behavioral disturbance, psychotic disturbance, mood disturbance, and anxiety; E86.0 Dehydration; D64.9 Anemia, unspecified; M81.0 Age-related osteoporosis without current pathological fracture; E78.00 Pure hypercholesterolemia, unspecified; F17.210 Nicotine dependence, cigarettes, uncomplicated; N18.9 Chronic kidney disease, unspecified; I12.9 Hypertensive chronic kidney disease with stage 1 through stage 4 chronic kidney disease, or unspecified chronic kidney disease; Z51.5 Encounter for palliative care; Z79.4 Long term (current) use of insulin